=== PATIENT | female | born 1925 | race Caucasian/White ===

== ENCOUNTER → 2016-11-28 | Outpatient (CLI) | payer MEDICARE, OTHER ==
[2015-07-09 20:20] VITALS: BP 132/80
[~2016-11-28] MED LIST: ASPI-252 PO; ATOR40TA59 PO; CALC-67 PO; DULO60CA6 PO; ESOM40CA25 PO; IBAN150T PO; IRBE150T PO; IRBE300T PO; ISOS30TA PO; LIDO700A4 TP; METO25TA4 PO; MULT-658 PO; VIT1CAPS17 PO
--- NOTE | 2016-11-28 15:48 | RAD ---
DATE: 11/28/2016 EXAM: MAMMO JOSHUA SCREENING BILATERAL HISTORY: Previous left breast cancer COMPARISON: 11/28/2015 This study was interpreted with the benefit of Computerized Aided Detection (CAD). FINDINGS: 2-D and 3-D tomosynthesis imaging was performed in CC and MLO projections. There are scattered fibroglandular densities in the breasts. There is an elongated lymph node type density in the lateral aspect of the right breast which is unchanged. No new or enlarging breast densities are seen. There are numerous benign type calcifications in both breasts. No suspicious microcalcifications have developed. IMPRESSION: Stable mammograms without evidence of malignancy. BI-RADS CATEGORY: 2 BENIGN FINDING(S) RECOMMENDED FOLLOW-UP: 12M 12 MONTH FOLLOW-UP PQRS compliance statement: Patient information was entered into a reminder system with a target due date for the next mammogram. Mammography is a sensitive method for finding small breast cancers, but it does not detect them all and is not a substitute for careful clinical examination. A negative mammogram does not negate a clinically suspicious finding and should not result in delay in biopsying a clinically suspicious abnormality. "Our facility is accredited by the [employer] Mammography Program."
== END | disposition home or self-care (01) ==
LOC: MAMMO 14:36
PROVIDERS: ATTEND Family Medicine
DX: Z12.31 Encounter for screening mammogram for malignant neoplasm of breast (principal); Z85.3 Personal history of malignant neoplasm of breast
CPT/HCPCS: 77063; G0202; 77067

== ENCOUNTER 2017-05-04 09:01 | Inpatient (IN) | payer MEDICARE, OTHER ==
[~2017-05-04] VITALS: Ht 170.2 cm; Wt 70.3 kg
[2017-05-04] VITALS (11 sets, daily range): BP systolic 85–154; BP diastolic 57–87
[~2017-05-04 09:01] MED LIST changes: +CALC-31 PO; -CALC-67 PO; +CALCIUM CARB/VIT D3 500/200 TABLET PO SCH
[2017-05-04 09:33] LABS: BASO # 0.1 x10^3/uL (0.0-0.2); BASO % 1 % (0-3); EOS # 0.2 x10^3/uL (0.0-0.7); EOS % 3 % (0-3); HEMATOCRIT 41.7 % (36.0-47.0); HEMOGLOBIN 13.4 g/dL (12.0-15.5); LYMPH # 1.6 x10^3/uL (1.0-4.8); LYMPH % 19 % (24-48); MEAN CORPUSCULAR HEMOGLOBIN 30 pg (25-35); MEAN CORPUSCULAR HGB CONC 32 g/dL (31-37); MEAN CORPUSCULAR VOLUME 93 fL (79-100); MONO # 0.8 x10^3/uL (0.0-1.1); MONO % 9 % (0-9); NEUT # 5.7 x10^3uL (1.8-7.7); NEUT % 68 % (31-73); PLATELET COUNT 200 x10^3/uL (140-400); RED BLOOD COUNT 4.51 x10^6/uL (3.50-5.40); RED CELL DISTRIBUTION WIDTH 13.6 % (11.5-14.5); WHITE BLOOD COUNT 8.3 x10^3/uL (4.0-11.0)
--- NOTE | 2017-05-04 09:35 | RAD ---
AP portable chest radiograph 05/04/2017 Clinical History: Shortness of breath. An AP portable erect digital radiograph of the chest was obtained. Comparison study is dated 07/13/2012. The cardiac silhouette is mildly enlarged. Atherosclerotic calcification of the thoracic aorta is seen. The thoracic aorta is mildly tortuous. Surgical clips overlie the left axilla. No acute pulmonary infiltrate is seen. No pleural effusion or pneumothorax is noted. Mild to moderate S-shaped curvature of the thoracolumbar spine is seen. Degenerative changes are seen involving the thoracic spine and both shoulders. Impression: No acute abnormality is seen.
[2017-05-04 09:50] LABS: ALBUMIN/GLOBULIN RATIO 0.7 (1.0-1.7); CALCIUM 8.3 mg/dL (8.5-10.1); CREATININE 1.8 mg/dL (0.6-1.0); GFR 26.5; POTASSIUM 3.8 mmol/L (3.5-5.1); TOTAL BILIRUBIN 0.6 mg/dL (0.2-1.0); TOTAL PROTEIN 7.3 g/dL (6.4-8.2)
[2017-05-04] MEDS ORDERED: AMIODARONE 450 MG/9 ML VIAL IV ONE (10:07)
[2017-05-04] MEDS ORDERED: AMIODARONE 900 MG in IV DEXTROSE 5% 500 ML IV PRN (10:30)
[2017-05-04] MEDS ORDERED: AMIODARONE 450 MG in IV DEXTROSE 5% 250 ML IV PRN (10:30)
[2017-05-04] MEDS ORDERED: FUROSEMIDE 40 MG/4 ML VIAL IVP ONE (11:30)
[2017-05-04] MEDS ORDERED: ONDANSETRON PF 4 MG/2 ML VIAL. IV PRN (12:00)
--- NOTE | 2017-05-04 13:40 | EKG ---
[address] [address] Test Date: 2017-05-04 Test Time: 09:10:06 Pat Name: GARY TUTTLE Department: Room: [facility]06 1 Gender: F Lard Refiner: : [id number] Requested By: JOSEFINA PETERSON Order Number: [id number] Reading MD: Brian Putnam Measurements Intervals [place] Rate: 101 P: ID: QRS: 41 QRSD: 136 T: 0 QT: 358 QTc: 465 Interpretive Statements ATRIAL FIB./FLUTTER WITH RAPID VENTRICULAR RESPONSE RBBB Electronically Signed On 05-05-2017 9:41:34 CDT by Brian Putnam
--- NOTE | 2017-05-04 14:41 | ED.ADGEN ---
Past History Past Medical History: CAD, Cancer, COPD, Depression, Heart Disease, Hypertension Past Surgical History: Cancer Surgery, Other Smoking: Non-smoker Alcohol Use: None Drug Use: None Adult General Chief Complaint Chief Complaint Shortness of breath HPI HPI Patient is a 89-year-old -[place] female who presents from referral from her PCPs office with reports of progressive shortness breath with exertion over the past 5 days. Patient has history of CAD, COPD, hypertension who states over the past 5 days she becomes short of breath limited exertion. Patient states she short of breath when she moves from her bed to her bathroom. Parents are improved with rest. Patient denies chest pain, palpitations, increased leg pain swelling. Patient denies paroxysmal nocturnal dyspnea and orthopnea. Denies history of congestive heart failure. Reports recent nonproductive cough. No fever chills sweats. No other acute symptoms or complaints. Patient was evaluated by her PCP this morning in the office noted to be in A. fib, new onset with episodes of RVR. Patient by ambulance to the ER for further evaluations. 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 Jara. Review of Systems Review of Systems ROS as per HPI. Current Medications Current Medications Current Medications Medications (Trade) Dose Ordered Sig/Verónica Start Time Stop Time Status Last Admin Dose Admin Amiodarone HCl (Cordarone) 450 mg STK-MED ONCE 05/04/17 10:07 05/04/17 10:08 DC Amiodarone HCl 450 mg/Dextrose 259 ml @ 17.26 mls/ hr CONT PRN 05/04/17 10:30 Amiodarone HCl 900 mg/Dextrose 518 ml @ 33.33 mls/ hr CONT PRN 05/04/17 10:30 05/04/17 10:30 DC Furosemide (Lasix) 40 mg 1X ONCE 05/04/17 11:30 05/04/17 11:31 DC Allergies Allergies Allergies Coded Allergies Type Severity Reaction Last Updated Verified iodine Allergy Unknown 02/11/14 Yes shellfish derived Allergy Unknown 02/11/14 Yes simvastatin Allergy Unknown 07/09/15 Yes Physical Exam Physical Exam Constitutional: Well developed, well nourished, no acute distress, non-toxic appearance. [] HENT: Normocephalic, atraumatic, bilateral external ears normal, oropharynx moist, no oral exudates, nose normal. [] Eyes: PERRLA, EOMI, conjunctiva normal, no discharge. [] Neck: Normal range of motion, no tenderness, supple, no stridor. [] Cardiovascular:Heart rate regular rhythm, no murmur [] Lungs & Thorax: Bilateral breath sounds clear to auscultation [] Abdomen: Bowel sounds normal, soft, no tenderness. [] Skin: Warm, dry, no erythema, no rash. [] Back: No tenderness, no CVA tenderness. [] Extremities: No tenderness, no cyanosis, no clubbing, ROM intact, no edema. [] Neurologic: Alert and oriented X 3, normal motor function, normal sensory function, no focal deficits noted. [] Psychologic: Affect normal, judgement normal, mood normal. [] Current Patient Data Vital Signs Vital Signs Date Time Temp Pulse Resp B/P (MAP) Pulse Ox O2 Delivery O2 Flow Rate FiO2 05/04/17 09:47 98.8 93 20 98 Room Air Lab Results Laboratory Tests Test 05/04/17 09:19 White Blood Count 8.3 x10^3/uL (4.0-11.0) Red Blood Count 4.51 x10^6/uL (3.50-5.40) Hemoglobin 13.4 g/dL (12.0-15.5) Hematocrit 41.7 % (36.0-47.0) Mean Corpuscular Volume 93 fL (79-100) Mean Corpuscular Hemoglobin 30 pg (25-35) Mean Corpuscular Hemoglobin Concent 32 g/dL (31-37) Red Cell Distribution Width 13.6 % (11.5-14.5) Platelet Count 200 x10^3/uL (140-400) Neutrophils (%) (Auto) 68 % (31-73) Lymphocytes (%) (Auto) 19 % (24-48) L Monocytes (%) (Auto) 9 % (0-9) Eosinophils (%) (Auto) 3 % (0-3) Basophils (%) (Auto) 1 % (0-3) Neutrophils # (Auto) 5.7 x10^3uL (1.8-7.7) Lymphocytes # (Auto) 1.6 x10^3/uL (1.0-4.8) Monocytes # (Auto) 0.8 x10^3/uL (0.0-1.1) Eosinophils # (Auto) 0.2 x10^3/uL (0.0-0.7) Basophils # (Auto) 0.1 x10^3/uL (0.0-0.2) Sodium Level 137 mmol/L (136-145) Potassium Level 3.8 mmol/L (3.5-5.1) Chloride Level 100 mmol/L (98-107) Carbon Dioxide Level 30 mmol/L (21-32) Anion Gap 7 (6-14) Blood Urea Nitrogen 25 mg/dL (7-20) H Creatinine 1.8 mg/dL (0.6-1.0) H Estimated GFR (Cockcroft-Gault) 26.5 BUN/Creatinine Ratio 14 (6-20) Glucose Level 110 mg/dL (70-99) H Calcium Level 8.3 mg/dL (8.5-10.1) L Total Bilirubin 0.6 mg/dL (0.2-1.0) Aspartate Amino Transferase (AST) 374 U/L (15-37) H Alanine Aminotransferase (ALT) 203 U/L (14-59) H Alkaline Phosphatase 182 U/L (46-116) H Troponin I Quantitative 0.020 ng/mL (0-0.055) UM-Oms-Z-Type Natriuretic Peptide 8791 pg/mL (0-449) H Total Protein 7.3 g/dL (6.4-8.2) Albumin 3.0 g/dL (3.4-5.0) L Albumin/Globulin Ratio 0.7 (1.0-1.7) L EKG EKG A. fib, rate 101, right bundle branch block, RVH, no acute ST-T wave changes.[] Radiology/Procedures Radiology/Procedures [Chest x-ray: No acute cardiopulmonary disease] Course & Med Decision Making Course & Med Decision Making Pertinent Labs and Imaging studies reviewed. (See chart for details) [Patient with new onset afib with CHF. While in the ED, patient noted to have brief self limited episode of possible V. tach on a monitor. She denies chest pain or palpitations or feeling lightheaded or dizzy during episode. Patient started on course of amiodarone. Patient's heart rate remained stable. Dr. Horne parks recreation director for the hospitalist service to admit. ] Final Impression Final Impression [1. New onset a-fib with RVR 2. acute congestive heart failure] Problems: Dragon Disclaimer Dragon Disclaimer This electronic medical record was generated, in whole or in part, using a voice recognition dictation system. JOSEFINA PETERSON DO May 04, 2017 14:41
[2017-05-04] MEDS ORDERED: VITE AC PO SCH (15:00)
[2017-05-04] MEDS ORDERED: ZNOX PO SCH (15:00)
[2017-05-04] MEDS ORDERED: LIDOCAINE (700MG/PATCH) PATCH. TP PRN (15:00)
[2017-05-04] MEDS ORDERED: LUT PO SCH (15:00)
[2017-05-04] MEDS ORDERED: VIT C PO SCH (15:00)
[2017-05-04] MEDS ORDERED: COPPER PO SCH (15:00)
[2017-05-04] MEDS ORDERED: ENOXAPARIN 30 MG/0.3 ML DISP.SYRIN. SQ SCH (16:30)
[2017-05-04] MEDS ORDERED: METO50TA10 PO (17:24)
[2017-05-04] MEDS ORDERED: ALBU8.5H8 INH (17:26)
[2017-05-04] MEDS ORDERED: FURO-69 PO (17:26)
[2017-05-04] MEDS ORDERED: PRIM50TA PO (17:26)
--- NOTE | 2017-05-04 18:09 | HP ---
ADMIT DATE: 05/04/2017 HISTORY OF PRESENT ILLNESS: The patient is an 89-year-old female patient who came to the Emergency Room as a referral from her primary care physician's office with reports of progressive shortness of breath with exertion that has been going on for the last 5 days. The patient is known to have history of coronary artery disease with multiple stenting, chronic obstructive pulmonary disease, and hypertension. Her main complaint was shortness of breath on exertion. She denied any orthopnea or paroxysmal nocturnal dyspnea. Denied any chest pain, cough, phlegm, or hemoptysis. She was evaluated at her primary care physician's office and was found to be in afib with rapid ventricular response. The patient was brought to the Emergency Room by ambulance for further evaluation. She has been seen before by the industrial servicer. She was evaluated and was started on amiodarone drip and was admitted to ICU to continue the amiodarone drip and to consult the Cardiology team. PAST MEDICAL HISTORY: Her past medical history is significant for hypertension, hyperlipidemia, chronic bronchitis, coronary artery disease status post PTCA with stent deployment. She has 2 stents in 2011 and another stent in 2014. She is also known to have gastroesophageal reflux disease, history of anemia, as well as breast cancer. PAST SURGICAL HISTORY: Significant for PTCA and stent deployment x3, bilateral cataract extraction, and left eye surgery. She had left breast lumpectomy, left total knee arthroplasty, appendectomy, and right knee arthroscopic surgery. ALLERGIES: SHE IS ALLERGIC TO IODINE AND SHELLFISH. SHE IS ALSO ALLERGIC TO SIMVASTATIN. MEDICATIONS: She is currently on following medications, aspirin 325 mg once a day, atorvastatin calcium 40 mg at bedtime, calcium carbonate with vitamin D 1 tablet daily, duloxetine 60 mg every other day, Nexium 40 mg daily, ibandronate sodium for Boniva 100 mg once a month, irbesartan 150 mg daily, isosorbide mononitrate 30 mg daily, lidocaine for Lidoderm patch 1 patch topically on for 12 hours and off for 12 hours, metoprolol tartrate 25 mg twice a day, multivitamin with mineral 1 tablet once a day, multivitamin for PreserVision ____ 1 tablet once a day. FAMILY HISTORY: She has 3 brothers, one at , one at 9-year-old with complication of appendicitis, and her oldest brother in his 60s with myocardial infarction. She has end-stage renal disease and has had kidney transplant donated by her son. Her mother at age of 71 because of myocardial infarction and her father also of myocardial infarction. SOCIAL HISTORY: She is and lives on her own. She has 1 adopted son. She does not smoke, but drinks alcohol occasionally. REVIEW OF SYSTEMS: The patient had bilateral cataract extractions, but denied any glaucoma or macular degeneration. Denied any earache, tinnitus, or sensorineural deafness. Denied any nosebleeds, stuffy nose, or postnasal drip. Denied any sore throat, sore tongue, toothache, hoarseness of voice, or difficulty swallowing. Denied any nausea, vomiting, diarrhea, or constipation. Denied any hematemesis, melena, or hematochezia. Denied any dysuria, frequency, or hematuria. She did complain of shortness of breath on exertion, but denied any orthopnea or paroxysmal nocturnal dyspnea. Denied any chest pain, cough, phlegm, or hemoptysis. Denied any dizziness, lightheadedness, or vertigo. PHYSICAL EXAMINATION: VITAL SIGNS: On arrival to the Emergency Room, she was in new onset of atrial fibrillation with heart rate in the 80s-90s, blood pressure was 103/62, temperature was 97, respiratory rate was 18, and oxygen saturation was 98% on room air. HEENT: Showed normocephalic and atraumatic. NECK: Supple. HEART: Showed normal first and second heart sounds with no gallop, rub, or murmur. CHEST: Clear to auscultation. No crepitation or rhonchi. ABDOMEN: Distended, soft, and nontender. No guarding or rigidity. No organomegaly. Hernial orifices are intact. Bowel sounds normal. NEUROLOGIC: She was awake, alert, and responding appropriately. Cranial nerves are intact. EXTREMITIES: She moves extremities without difficulty. She ambulates normally without assistance or assistive devices, although for the last few days, she has been using a cane. DIAGNOSTIC DATA: Her EKG showed that she was in atrial fibrillation with a heart rate of 101 with right bundle branch block and right ventricular hypertrophy with no acute ST-T changes. LABORATORY DATA: Her lab work showed white cell count of 8300, hemoglobin 13, hematocrit 42, MCV 93, and platelet count of 200,000. Her chemistry showed a serum sodium of 137, potassium 3.8, chloride 100, bicarbonate 30, anion gap of 7, BUN 25, and creatinine 1.8. Estimated GFR was 26 mL per minute. Her glucose was 110 and calcium was 8.3. Total bilirubin is normal. AST, ALT, and alkaline phosphatase are all elevated. Her beta natriuretic peptide was 8791, total protein 7.3, and albumin was 3. Her first set of cardiac enzymes showed troponin to be 0.020. Her prothrombin time was 10.6 and INR 2.7. Her chest x-ray showed that the cardiac silhouette is mildly enlarged ____thoracic aorta is seen. The thoracic aorta is mildly tortuous. Surgical clips overlying the left axilla. No acute pulmonary infiltrate is seen. No pleural effusion or pneumothorax noted. [id number] S-shaped curvature of the thoracolumbar spine is seen. Degenerative changes are seen involving the thoracic spine and both shoulders. IMPRESSION: In summary, this is an 89-year-old female patient who was admitted with a new onset atrial fibrillation and rapid ventricular response. She also seems to be clinically in heart failure. PLAN: My plan is to do two more sets of cardiac enzyme. We will consult the Chief Of Hospital Medicine. I will also make sure that we need to have anticoagulate her and we will decide on further management accordingly. BOB DEWITT MD DR: ERICKSON/dev JOB#: [id number] / [id number]
[2017-05-04] MEDS: PRIMIDONE 50 MG TABLET PO SCH (20:57)
[2017-05-04] MEDS ORDERED: METOPROLOL TART IMMED RELEASE 25 MG TABLET PO SCH (21:00)
[2017-05-04] MEDS ORDERED: ATORVASTATIN CALCIUM 20 MG TABLET PO SCH (21:00)
[2017-05-05] VITALS (17 sets, daily range): BP systolic 99–136; BP diastolic 49–77
[2017-05-05 08:20] LABS: ALBUMIN 2.6 g/dL (3.4-5.0); ALBUMIN/GLOBULIN RATIO 0.7 (1.0-1.7); CALCIUM 7.8 mg/dL (8.5-10.1); GFR 23.5; POTASSIUM 4.2 mmol/L (3.5-5.1); TOTAL BILIRUBIN 0.6 mg/dL (0.2-1.0); TOTAL PROTEIN 6.3 g/dL (6.4-8.2)
[2017-05-05 08:23] LABS: BASO # 0.1 x10^3/uL (0.0-0.2); BASO % 1 % (0-3); EOS # 0.2 x10^3/uL (0.0-0.7); EOS % 3 % (0-3); HEMATOCRIT 35.6 % (36.0-47.0); HEMOGLOBIN 11.7 g/dL (12.0-15.5); LYMPH # 2.5 x10^3/uL (1.0-4.8); LYMPH % 30 % (24-48); MEAN CORPUSCULAR HEMOGLOBIN 30 pg (25-35); MEAN CORPUSCULAR HGB CONC 33 g/dL (31-37); MEAN CORPUSCULAR VOLUME 92 fL (79-100); MONO # 0.9 x10^3/uL (0.0-1.1); MONO % 11 % (0-9); NEUT # 4.7 x10^3uL (1.8-7.7); NEUT % 56 % (31-73); PLATELET COUNT 176 x10^3/uL (140-400); RED BLOOD COUNT 3.87 x10^6/uL (3.50-5.40); RED CELL DISTRIBUTION WIDTH 13.4 % (11.5-14.5); WHITE BLOOD COUNT 8.3 x10^3/uL (4.0-11.0)
[2017-05-05] MEDS ORDERED: FUROSEMIDE 20 MG TABLET PO SCH (09:00)
[2017-05-05] MEDS ORDERED: ASPIRIN ENTERIC COATED 325 MG TABLET.DR. PO SCH (09:00)
[2017-05-05] MEDS ORDERED: ISOSORBIDE MONONITRATE ER 30 MG TAB.ER.24H PO SCH (09:00)
[2017-05-05] MEDS ORDERED: LOSARTAN 50 MG TABLET. PO SCH (09:00)
[2017-05-05] MEDS ORDERED: ASPI81TA50 PO (09:26)
[2017-05-05] MEDS: METOPROLOL SUCC 24HR ER 50 MG TAB.ER.24H. PO SCH (11:02)
[2017-05-05] MEDS: MULTIVITAMIN I-VITE TABLET. PO SCH (11:02)
[2017-05-05] MEDS: PANTOPRAZOLE 40 MG TABLET. PO SCH (11:04)
[2017-05-05] MEDS: DULoxetine HCL 60 MG CAPSULE.DR PO SCH (11:05)
[2017-05-05] MEDS: ASPIRIN ENTERIC COATED 81 MG TABLET.DR. PO SCH (11:05)
[2017-05-05] MEDS: ISOSORBIDE MONONITRATE ER 30 MG TAB.ER.24H PO SCH (11:17)
--- NOTE | 2017-05-05 13:08 | RAD ---
Bilateral lower extremity venous duplex study 05/05/2017 Clinical history: Bilateral leg swelling.. Technique: Using a combination of real time ultrasound imaging and color-flow and pulse Doppler imaging techniques along with graded compression and augmentation, duplex evaluation of the deep venous system of the both lower extremities was performed. Multiple images were obtained. Findings: There is no sonographic evidence of deep venous thrombosis involving the visualized deep venous structures of either lower extremity. Impression: Negative study.
--- NOTE | 2017-05-05 13:41 | CARD ---
APPROVED REPORT EXAM: Two-dimensional and M-mode echocardiogram with Doppler and color Doppler. Other Information Quality : Average Rhythm : NSR INDICATION Atrial Fibrillation Congestive Heart Failure 2D DIMENSIONS RVDd2.4 (2.9-3.5cm)Left Atrium(2D)3.4 (1.6-4.0cm) IVSd1.1 (0.7-1.1cm)Aortic Root(2D)2.7 (2.0-3.7cm) LVDd4.4 (3.9-5.9cm)LVOT Diameter2.0 (1.8-2.4cm) PWd1.1 (0.7-1.1cm)LVDs2.5 (2.5-4.0cm) FS (%) 32.1 %SV63.3 ml LVEF(%)63.3 (>50%) Aortic Valve AoV Peak Sin.208.6cm/sAoV VTI47.4cm AO Peak GR.17.4mmHgLVOT Peak Sin.70.6cm/s LVOT VTI 15.06cmAO Mean GR.10mmHg KAY (VMAX)1.34er8KDE (VTI)1.12cm2 Mitral Valve MV E Xtfqavel767.5cm/sMV E Peak Gr.6mmHg MV DECEL [id number] A Cxhrzvum06.8cm/s MV E Mean Gr.2mmHgMV [id number] E/A Ratio1.9MV A Rqhkitgf40cw MVA (PHT)3.36cm2 Tricuspid Valve TR P. Xsgslkey232rr/sRAP DBSCGFMO9zzYg TR Peak Gr.65fbPlLWMN85kaXn LEFT VENTRICLE The left ventricle is normal size. There is normal left ventricular wall thickness. Left ventricle sy stolic function is normal. The Ejection Fraction is 55%. There is normal LV segmental wall motion. Th e left ventricular diastolic function and filling is normal for age. RIGHT VENTRICLE The right ventricle is normal size. The right ventricular systolic function is normal. ATRIA The left atrium size is normal. The right atrium size is normal. The interatrial septum is intact wit h no evidence for an atrial septal defect or patent foramen ovale as noted on 2-D or Doppler imaging. AORTIC VALVE The aortic valve is moderately calcified and shows decreased opening. Doppler and Color Flow revealed no significant aortic regurgitation. Calculated aortic valve area is 1.1 cm2 (likely underestimated) with maximum pressure gradient of 17 mmHg and mean pressure gradient of 10 mmHg. Doppler and color-f low analysis revealed mild aortic stenosis. MITRAL VALVE Mitral annular calcification is mild. The mitral valve leaflets are thickened and calcified. There is no mitral valve stenosis. Doppler and Color Flow revealed mild to moderate mitral regurgitation. TRICUSPID VALVE The tricuspid valve is normal in structure. Doppler and Color Flow revealed moderate tricuspid regurg itation. The PA pressure was estimated at 38 mmHg. There is no tricuspid valve stenosis. PULMONIC VALVE The pulmonic valve is not well visualized. Doppler and Color Flow revealed no significant pulmonic va lvular regurgitation. There is no pulmonic valvular stenosis. GREAT VESSELS The aortic root is normal in size. The ascending aorta is normal in size. Pulmonary veins not recorde d. The IVC is normal in size and collapses >50% with inspiration. PERICARDIAL EFFUSION There is no evidence of significant pericardial effusion. Critical Notification Critical Value: No <Conclusion> Left ventricle systolic function is normal. The Ejection Fraction is 55%. There is normal LV segmental wall motion. The aortic valve is moderately calcified and shows decreased opening. Calculated aortic valve area is 1.1 cm2 (likely underestimated) with maximum pressure gradient of 17 mmHg and mean pressure gradient of 10 mmHg. Doppler and color-flow analysis revealed mild aortic sten osis, likely more consistent with true degree of stenosis. Doppler and Color Flow revealed mild to moderate mitral regurgitation. Doppler and Color Flow revealed moderate tricuspid regurgitation. The PA pressure was estimated at 38 mmHg.
--- NOTE | 2017-05-05 14:00 | RAD ---
Lung scan 05/05/2017 Clinical history: Elevated d-dimer with shortness of breath Technique: After the administration of 9.5 mCi of xenon-133 gas, ventilation images of both lungs were obtained using the gamma camera. After the intravenous administration of 5.5 mCi of technetium 99m MAA, perfusion images of both lungs were obtained using the gamma camera. Findings: Comparison is made to a portable chest radiograph dated 05/04/2017. This demonstrates no acute pulmonary infiltrate. Homogeneous ventilation to both lungs is seen. Multiple wedge-shaped subsegmental and segmental unmatched perfusion defects are seen scattered throughout both lungs. These findings are consistent with a high probability study for pulmonary embolism. Impression: High probability study. The patient's nurse was notified of this finding.
--- NOTE | 2017-05-05 14:44 | PDOC2 ---
NOMADDIE Dixie [employer] ME[employer]IC 05/05/17 1444: CONSULT Date of Admission DATE: 05/05/17 TIME: 13:35 Reason for Consult: atrial fibrillation with RVR Problem List Problems Medical Problems: (1) Acute CHF (congestive heart failure) Status: Acute History of Present Illness Ms Plata is an 89 year old female with a history of coronary artery disease with prior PCI/Stents, hypertension, hyperlipidemia and a remote history of tachy - karol. Most recently she had been evaluated for exertional dyspnea and intermittent chest pain. Cardiac cath revealed moderate 60% mid LAD stenosis and severe systolic hypertension. She was managed medically and with aggressive blood pressure control. She reports improvement in her symptoms as her pressure was more controlled. At this time she reports that she had increased dyspnea and fatigue over several days. She reports not being able to walk around in her house and more and more dyspnea at rest so she presented to her PCP office for eval. She was found to be in atrial fibrillation with RVR and sent to ED for evaluation and treatment. While in the ED she was noted to have some wide complex tachycardia that they thought may have been consistent with ventricular tachycardia and so she was started on amiodarone drip. Currently she is in sinus rhythm with rate in the 60s. She reports feeling much better and breathing easily. She denies chest pain, lightheadedness or presyncope. Past Medical History CAD with PCI KANDACE to lad in 2011, most recent cath reveals LAD disease as noted above. hypertension hyperlipidemia GERD prior asymptomatic tachybrady syndrome. Past Surgical History left knee replacement right meniscus repair left breast lumpectomy hip surgery Family History CAD, CHF, aortic stenosis Social History non smoker, no significant ETOH, no illicit drugs Current Medications Current Medications Amiodarone HCl (Cordarone) 450 mg STK-MED ONCE IV ; Start 05/04/17 at 10:07; Stop 05/04/17 at 10:08; Status DC Amiodarone HCl 900 mg/Dextrose 518 ml @ 33.33 mls/ hr CONT PRN IV SEE I/O RECORD; Start 05/04/17 at 10:30; Stop 05/04/17 at 10:30; Status DC Amiodarone HCl 450 mg/Dextrose 259 ml @ 17.26 mls/ hr CONT PRN IV SEE I/O RECORD Last administered on 05/05/17t 01:45; Start 05/04/17 at 10:30 Furosemide (Lasix) 40 mg 1X ONCE IVP ; Start 05/04/17 at 11:30; Stop 05/04/17 at 11:31; Status DC Ondansetron HCl (Zofran) 4 mg PRN Q4HRS PRN IV NAUSEA/VOMITING; Start 05/04/17 at 12:00; Stop 05/05/17 at 11:59; Status DC Aspirin (Aspirin Enteric Coated) 325 mg DAILY PO ; Start 05/05/17 at 09:00; Stop 05/05/17 at 09:31; Status DC Duloxetine HCl (Cymbalta) 60 mg QODAY PO ; Start 05/06/17 at 09:00; Stop at 09:00; Status DC Isosorbide Mononitrate (Imdur) 30 mg DAILY PO ; Start 05/05/17 at 09:00; Stop at 09:35; Status DC Lidocaine (Lidoderm) 1 patch PRN Q24HRS PRN TP PAIN; Start 05/04/17 at 15:00 Metoprolol Tartrate (Lopressor) 25 mg BID PO ; Start 05/04/17 at 21:00; Stop at 08:36; Status DC Atorvastatin Calcium (Lipitor) 40 mg QHS PO Last administered on 05/04/17 20: 57; Start 05/04/17 at 21:00 Calcium/Vitamin D (Oscal D 500mg/ 200uts) 1 tab DAILY PO ; Start 05/04/17 at 09: 00; Stop 05/05/17 at 09:35; Status DC Pantoprazole Sodium (Protonix) 40 mg DAILYAC PO Last administered on 05/05/17 11:04; Start 05/05/17 at 07:30 Losartan Potassium (Cozaar) 50 mg DAILY PO ; Start 05/05/17 at 09:00; Stop 05/05 at 09:35; Status DC Multivitamins/ Minerals (I-Vito) 1 tab DAILY PO Last administered on 05/05/17 11:02; Start 05/05/17 at 09:00 Non-Formulary Medication 1 each PRN DAILY PO ; Start 05/04/17 at 15:00; Stop at 15:24; Status DC Enoxaparin Sodium (Lovenox) 30 mg Q24H SQ Last administered on 05/04/17 17:35 ; Start 05/04/17 at 16:30 Furosemide (Lasix) 20 mg DAILY PO Last administered on 05/05/17 11:02; Start 05/05/17 at 09:00 Metoprolol Succinate (Toprol Xl) 50 mg DAILY PO Last administered on 05/05/17 11:02; Start 05/05/17 at 09:00 Primidone (Mysoline) 50 mg HS PO Last administered on 05/04/17 20:57; Start at 21:00 Aspirin (Aspirin Enteric Coated) 81 mg DAILY PO Last administered on 05/05/17 11:05; Start 05/05/17 at 09:45 Duloxetine HCl (Cymbalta) 60 mg DAILY08 PO Last administered on 05/05/17 11:05 ; Start 05/05/17 at 09:45 Isosorbide Mononitrate (Imdur) 60 mg DAILY PO Last administered on 05/05/17 11 :17; Start 05/05/17 at 09:45 Active Scripts Active Reported Aspir-Low (Aspirin) 81 Mg Tablet. 1 Tab PO DAILY Primidone 50 Mg Tablet 50 Mg PO HS Proair Hfa Inhaler (Albuterol Sulfate) 8.5 Gm Hfa.aer.ad 1 Puff INH PRN Q6HRS PRN Lasix (Furosemide) 20 Mg Tablet 1 Tab PO DAILY Metoprolol Succinate ( Xl ) (Metoprolol Succinate) 50 Mg Tab.er.24h 1 Tab PO DAILY Preservision Lutein Softgel (Vit C/Vito Ac/Lut/Copper/Znox) 1 Each Capsule 1 Each PO PRN DAILY last dose today, next dose tomorrow 6-24- Lidoderm (Lidocaine) 700 Mg Adh..patch 700 Mg TP PRN Q24HRS None placed today, may apply as necessary for pain Boniva (Ibandronate Sodium) 150 Mg Tablet 150 Mg PO Last dose today, next dose 6-24-14 Atorvastatin Calcium 40 Mg Tablet 40 Mg PO QHS Last dose today, next dose 6-24-14 Cymbalta (Duloxetine Hcl) 60 Mg Capsule.dr 60 Mg PO QODAY last dose today, next dose 6-24-14 Imdur (Isosorbide Mononitrate) 30 Mg Tab.er.24h 60 Mg PO DAILY Last dose today, next dose 02-28-14 Esomeprazole Capsule (Esomeprazole Strontium) 40 Mg Capsule.dr 40 Mg PO DAILYAC Last dose today, next dose 02-28-14 Allergies: Coded Allergies: iodine (Verified Allergy, Unknown, 02/11/14) shellfish derived (Verified Allergy, Unknown, 02/11/14) simvastatin (Verified Allergy, Unknown, 07/09/15) Review of System as per HPI or negative General: Alert, Oriented X3, Cooperative, No acute distress HEENT: Atraumatic, EOMI, Mucous membr. moist/pink Lungs: Other (essentially clear with decreased bases) Heart: Other (regular rate and rhythm without gallops, clicks or rubs) Abdomen: Normal bowel sounds, Soft, No tenderness Extremities: No cyanosis, Normal pulses Neuro: Normal speech Psych/Mental Status: Mental status NL, Mood NL VITALS Vital Signs Date Time Temp Pulse Resp B/P (MAP) Pulse Ox O2 Delivery O2 Flow Rate FiO2 05/05/17 12:43 Room Air 05/05/17 12:28 60 16 114/68 (83) 97 05/05/17 10:21 2.0 05/05/17 08:50 97.6 Labs Laboratory Tests Test 05/04/17 09:19 05/04/17 14:05 05/04/17 15:20 05/04/17 20:00 White Blood Count 8.3 x10^3/uL (4.0-11.0) Red Blood Count 4.51 x10^6/uL (3.50-5.40) Hemoglobin 13.4 g/dL (12.0-15.5) Hematocrit 41.7 % (36.0-47.0) Mean Corpuscular Volume 93 fL (79-100) Mean Corpuscular Hemoglobin 30 pg (25-35) Mean Corpuscular Hemoglobin Concent 32 g/dL (31-37) Red Cell Distribution Width 13.6 % (11.5-14.5) Platelet Count 200 x10^3/uL (140-400) Neutrophils (%) (Auto) 68 % (31-73) Lymphocytes (%) (Auto) 19 % (24-48) Monocytes (%) (Auto) 9 % (0-9) Eosinophils (%) (Auto) 3 % (0-3) Basophils (%) (Auto) 1 % (0-3) Neutrophils # (Auto) 5.7 x10^3uL (1.8-7.7) Lymphocytes # (Auto) 1.6 x10^3/uL (1.0-4.8) Monocytes # (Auto) 0.8 x10^3/uL (0.0-1.1) Eosinophils # (Auto) 0.2 x10^3/uL (0.0-0.7) Basophils # (Auto) 0.1 x10^3/uL (0.0-0.2) Sodium Level 137 mmol/L (136-145) Potassium Level 3.8 mmol/L (3.5-5.1) Chloride Level 100 mmol/L (98-107) Carbon Dioxide Level 30 mmol/L (21-32) Anion Gap 7 (6-14) Blood Urea Nitrogen 25 mg/dL (7-20) Creatinine 1.8 mg/dL (0.6-1.0) Estimated GFR (Cockcroft-Gault) 26.5 BUN/Creatinine Ratio 14 (6-20) Glucose Level 110 mg/dL (70-99) Calcium Level 8.3 mg/dL (8.5-10.1) Total Bilirubin 0.6 mg/dL (0.2-1.0) Aspartate Amino Transf (AST/SGOT) 374 U/L (15-37) Alanine Aminotransferase (ALT/SGPT) 203 U/L (14-59) Alkaline Phosphatase 182 U/L (46-116) Troponin I Quantitative 0.020 ng/mL (0-0.055) 0.017 ng/mL (0-0.055) 0.021 ng/mL (0-0.055) PX-Wap-P-Type Natriuretic Peptide 8791 pg/mL (0-449) Total Protein 7.3 g/dL (6.4-8.2) Albumin 3.0 g/dL (3.4-5.0) Albumin/Globulin Ratio 0.7 (1.0-1.7) Nasal Screen MRSA (PCR) Negative (Negative) Test 05/05/17 05:47 05/05/17 10:17 White Blood Count 8.3 x10^3/uL (4.0-11.0) Red Blood Count 3.87 x10^6/uL (3.50-5.40) Hemoglobin 11.7 g/dL (12.0-15.5) Hematocrit 35.6 % (36.0-47.0) Mean Corpuscular Volume 92 fL (79-100) Mean Corpuscular Hemoglobin 30 pg (25-35) Mean Corpuscular Hemoglobin Concent 33 g/dL (31-37) Red Cell Distribution Width 13.4 % (11.5-14.5) Platelet Count 176 x10^3/uL (140-400) Neutrophils (%) (Auto) 56 % (31-73) Lymphocytes (%) (Auto) 30 % (24-48) Monocytes (%) (Auto) 11 % (0-9) Eosinophils (%) (Auto) 3 % (0-3) Basophils (%) (Auto) 1 % (0-3) Neutrophils # (Auto) 4.7 x10^3uL (1.8-7.7) Lymphocytes # (Auto) 2.5 x10^3/uL (1.0-4.8) Monocytes # (Auto) 0.9 x10^3/uL (0.0-1.1) Eosinophils # (Auto) 0.2 x10^3/uL (0.0-0.7) Basophils # (Auto) 0.1 x10^3/uL (0.0-0.2) Sodium Level 135 mmol/L (136-145) Potassium Level 4.2 mmol/L (3.5-5.1) Chloride Level 100 mmol/L (98-107) Carbon Dioxide Level 28 mmol/L (21-32) Anion Gap 7 (6-14) Blood Urea Nitrogen 34 mg/dL (7-20) Creatinine 2.0 mg/dL (0.6-1.0) Estimated GFR (Cockcroft-Gault) 23.5 BUN/Creatinine Ratio 17 (6-20) Glucose Level 113 mg/dL (70-99) Calcium Level 7.8 mg/dL (8.5-10.1) Total Bilirubin 0.6 mg/dL (0.2-1.0) Aspartate Amino Transf (AST/SGOT) 376 U/L (15-37) Alanine Aminotransferase (ALT/SGPT) 213 U/L (14-59) Alkaline Phosphatase 157 U/L (46-116) Total Protein 6.3 g/dL (6.4-8.2) Albumin 2.6 g/dL (3.4-5.0) Albumin/Globulin Ratio 0.7 (1.0-1.7) D-Dimer (Sarai) 1.38 mg/L (0.00-0.50) Images EKG - atrial fibrillation with RVR CXR - Impression: No acute abnormality is seen. Assessment/Plan 1. Paroxysmal Atrial fibrillation with RVR - now sinus rhythm 2. CAD s/p PCI/stent 2011 with moderate disease by last cath 3. hypertension 4. hyperlipidemia 5. hepatic insufficiency 6. renal failure, acute on chronic 7. advanced age Discontinue amiodarone and statin in light of elevated liver enzymes. Would continue on beta blockers only as no ideal agent with her hepatic and renal dysfunction. Cha2ds 2 vasc score = 5 but again comorbidities increase risk associated with OACs. Continue aspirin. Discussed risks and benefits with patient and answered questions. Problems: PITO ARMSTRONG MD 05/06/17 0951: CONSULT Allergies: Coded Allergies: iodine (Verified Allergy, Unknown, 02/11/14) shellfish derived (Verified Allergy, Unknown, 02/11/14) simvastatin (Verified Allergy, Unknown, 07/09/15) Assessment/Plan Patient seen and examined 05/05/17. Agree with GUEST SERVICES ASSOCIATE's assessment and plan. Patient presented back in sinus rhythm. Agree with continuing beta blockers and aspirin. Stop amiodarone for elevated liver enzymes. 2-D echo showed normal LV function with mild aortic stenosis. CAD status stable. Acute on chronic diastolic heart failure probably secondary to rapid ventricular response, presently improved. Continue current medical regimen. Thank you for your consultation. Problems: MADDIE SARABIA APRN May 05, 2017 14:44 PITO ARMSTRONG MD May 06, 2017 09:51
[2017-05-05] MEDS ORDERED: IV NORMAL SALINE 500ML 500 ML IV ONE (14:45)
[2017-05-05] MEDS: ENOXAPARIN ** NOTE DOSE ** SYRINGE SQ SCH (15:31)
[2017-05-05] MEDS: IV NORMAL SALINE 1,000ML 1,000 ML IV SCH (15:31)
[2017-05-05] MEDS: PRIMIDONE 50 MG TABLET PO SCH (19:59)
[2017-05-05] MEDS ORDERED: ACETAMINOPHEN 325 MG TABLET PO PRN (22:15)
[2017-05-06] VITALS (17 sets, daily range): BP systolic 95–169; BP diastolic 50–88
--- NOTE | 2017-05-06 01:55 | PN ---
DATE: 05/05/2017 SUBJECTIVE: The patient is resting, almost flat in bed, in no apparent distress. She denied any chest pain or shortness of breath at rest. Her liver enzymes were markedly elevated. I did check her D-dimer and was found to be at 1.38 and we did a pulmonary perfusion imaging, which showed that there is homogeneous ventilation to both lungs and seen multiple wedge-shaped subsegmental and segmental unmatched perfusion defects are seen scattered throughout both lungs. The findings are considered with a high probability study for pulmonary embolism and therefore we increased her Lovenox to a therapeutic dose of 70 mg once a day. Unfortunately, her kidney function is deteriorating and her creatinine has risen slightly to 2 mg, her baseline was 0.9 mg so I will give her a bolus of normal saline and continue with IV fluid and repeat all her labs tomorrow. I will hold her Lasix for now and we will treat her and repeat her lab works tomorrow and eventually we will start her on Xarelto 15 mg twice a day for 21 days and then 20 mg daily. PHYSICAL EXAMINATION: GENERAL: When I examined her this afternoon, she looked well and was clearly in no apparent respiratory distress, pale, but no jaundice, cyanosis, or thyromegaly. No jugular venous distention. No limb edema. VITAL SIGNS: Her heart rate was 60, blood pressure 114/68, temperature was 98, respiratory rate was 16, and oxygen saturation was 97% on room air. HEAD, EYES, EARS, NOSE AND THROAT: Showed normocephalic, atraumatic. NECK: Supple. HEART: Showed normal first and second heart sounds. No gallop, rub or murmur. CHEST: Clear to auscultation. No crepitation or rhonchi. ABDOMEN: Distended, soft, nontender. No guarding or rigidity. No organomegaly. All hernial orifices are intact. Bowel sounds normal. NEUROLOGIC: She was awake, alert, responding appropriately. Cranial nerves are intact. She moves extremities without difficulty. She does ambulate without assistance or assistive devices. Her intake over the last 24 hours was 900, output 300. LABORATORY DATA: This morning showed a serum sodium 135, potassium 4.2, chloride 100, bicarbonate 28, anion gap of 7, BUN 34, creatinine 2. Estimated GFR was 23 mL per minute. Her glucose was 113, calcium was 7.8. Total bilirubin is normal. AST, ALT and alkaline phosphatase are all elevated. She has 3 sets of cardiac enzymes, showed troponin to be slightly elevated, but still within normal range. Her total protein was 6.3, albumin 2.6. Her white cell count was 8300, hemoglobin 11.7, hematocrit 35.6, MCV 92, and platelet count of 276,000. Her D-dimer is 1.38. Her nasal screen for MRSA by PCR was negative. DIAGNOSTIC DATA: She has bilateral lower extremity venous Doppler ultrasound, which showed that there is no sonographic evidence of deep vein thrombosis involving the visualized deep venous structures of either lower extremity. However, the ventilation perfusion scan showed that she has homogenous ventilation with both lungs and is seen multiple wedge-shaped subsegmental and segmental unmatched perfusion defects are seen scattered throughout both lungs. These findings are consistent with a high probability study for pulmonary embolism. ASSESSMENT: New onset atrial fibrillation with rapid ventricular response, bilateral pulmonary emboli, hypertension, hyperlipidemia, coronary artery disease, status post percutaneous transluminal coronary angioplasty or stent deployment, gastroesophageal reflux disease, anemia as well as breast cancer. BOB DEWITT MD DR: ERICKSON/dev JOB#: [id number] / [id number]
[2017-05-06] MEDS: IV NORMAL SALINE 1,000ML 1,000 ML IV SCH ×2 (03:14→19:45)
[2017-05-06 06:33] LABS: CALCIUM 7.3 mg/dL (8.5-10.1); CREATININE 1.6 mg/dL (0.6-1.0); GFR 30.3; POTASSIUM 3.8 mmol/L (3.5-5.1)
[2017-05-06 07:34] LABS: ALBUMIN 2.3 g/dL (3.4-5.0); DIRECT BILIRUBIN 0.2 mg/dL (0.0-0.2); TOTAL BILIRUBIN 0.6 mg/dL (0.2-1.0)
[2017-05-06] MEDS ORDERED: DULoxetine HCL 60 MG CAPSULE.DR PO SCH (09:00)
[2017-05-06] MEDS: ASPIRIN ENTERIC COATED 81 MG TABLET.DR. PO SCH (09:00)
[2017-05-06] MEDS: PANTOPRAZOLE 40 MG TABLET. PO SCH (09:21)
[2017-05-06] MEDS: ISOSORBIDE MONONITRATE ER 30 MG TAB.ER.24H PO SCH (09:23)
[2017-05-06] MEDS: DULoxetine HCL 60 MG CAPSULE.DR PO SCH (09:23)
[2017-05-06] MEDS: MULTIVITAMIN I-VITE TABLET. PO SCH (09:23)
[2017-05-06] MEDS: ASPIRIN 81 MG TAB.CHEW PO SCH (09:24)
[2017-05-06] MEDS: METOPROLOL SUCC 24HR ER 50 MG TAB.ER.24H. PO SCH (09:25)
--- NOTE | 2017-05-06 09:44 | PDOC ---
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 Paroxysmal Atrial fibrillation with RVR - now sinus rhythm 2. chronic diastolic heart failure - compensated 3. PE - anticoagulation 6 months. Discussed with pharmacy re: elevated liver enzymes. Rec Pradaxa with renal adjustment. 4. CAD s/p PCI/stent 2011 with moderate disease by last cath - angina free. continue medical mgmt. 5. hypertension - controlled 6. hyperlipidemia - stopped statin due to elevated LFts. 7. hepatic insufficiency - off statin, off amiodarone, stop cymbalta and check with PCP for alternative. stop tylenol. 8. renal failure, acute on chronic - improved 9. advanced age Problems: Subjective up in shower. reports feeling better and breathing improved. no chest pain, palpitations or lightheadedness. Objective Vital Signs Date Time Temp Pulse Resp B/P (MAP) Pulse Ox O2 Delivery O2 Flow Rate FiO2 05/06/17 09:25 61 128/70 05/06/17 06:11 20 97 Nasal Cannula 2.0 05/05/17 21:11 98.6 Abdomen: Normal bowel sounds, Soft, No tenderness Heart: Regular rate, Normal S1, Normal S2 Extremities: No cyanosis, Normal pulses General: Alert, Oriented X3, Cooperative, No acute distress HEENT: Atraumatic, EOMI Lungs: Other (few basilar crackles) Neuro: Normal speech, Strength at 5/5 X4 ext Psych/Mental Status: Mental status NL, Mood NL Review of Relevant I have reviewed the following items natalee (where applicable) has been applied. Labs Laboratory Tests Test 05/04/17 14:05 05/04/17 15:20 05/04/17 20:00 05/05/17 05:47 Nasal Screen MRSA (PCR) Negative (Negative) Troponin I Quantitative 0.017 ng/mL (0-0.055) 0.021 ng/mL (0-0.055) White Blood Count 8.3 x10^3/uL (4.0-11.0) Red Blood Count 3.87 x10^6/uL (3.50-5.40) Hemoglobin 11.7 g/dL (12.0-15.5) Hematocrit 35.6 % (36.0-47.0) Mean Corpuscular Volume 92 fL (79-100) Mean Corpuscular Hemoglobin 30 pg (25-35) Mean Corpuscular Hemoglobin Concent 33 g/dL (31-37) Red Cell Distribution Width 13.4 % (11.5-14.5) Platelet Count 176 x10^3/uL (140-400) Neutrophils (%) (Auto) 56 % (31-73) Lymphocytes (%) (Auto) 30 % (24-48) Monocytes (%) (Auto) 11 % (0-9) Eosinophils (%) (Auto) 3 % (0-3) Basophils (%) (Auto) 1 % (0-3) Neutrophils # (Auto) 4.7 x10^3uL (1.8-7.7) Lymphocytes # (Auto) 2.5 x10^3/uL (1.0-4.8) Monocytes # (Auto) 0.9 x10^3/uL (0.0-1.1) Eosinophils # (Auto) 0.2 x10^3/uL (0.0-0.7) Basophils # (Auto) 0.1 x10^3/uL (0.0-0.2) Sodium Level 135 mmol/L (136-145) Potassium Level 4.2 mmol/L (3.5-5.1) Chloride Level 100 mmol/L (98-107) Carbon Dioxide Level 28 mmol/L (21-32) Anion Gap 7 (6-14) Blood Urea Nitrogen 34 mg/dL (7-20) Creatinine 2.0 mg/dL (0.6-1.0) Estimated GFR (Cockcroft-Gault) 23.5 BUN/Creatinine Ratio 17 (6-20) Glucose Level 113 mg/dL (70-99) Calcium Level 7.8 mg/dL (8.5-10.1) Total Bilirubin 0.6 mg/dL (0.2-1.0) Aspartate Amino Transf (AST/SGOT) 376 U/L (15-37) Alanine Aminotransferase (ALT/SGPT) 213 U/L (14-59) Alkaline Phosphatase 157 U/L (46-116) Total Protein 6.3 g/dL (6.4-8.2) Albumin 2.6 g/dL (3.4-5.0) Albumin/Globulin Ratio 0.7 (1.0-1.7) Thyroid Stimulating Hormone (TSH) 2.942 uIU/mL (0.358-3.740) Test 05/05/17 10:17 05/06/17 05:53 D-Dimer (Sarai) 1.38 mg/L (0.00-0.50) Erythrocyte Sedimentation Rate 17 (0-25) Sodium Level 139 mmol/L (136-145) Potassium Level 3.8 mmol/L (3.5-5.1) Chloride Level 105 mmol/L (98-107) Carbon Dioxide Level 28 mmol/L (21-32) Anion Gap 6 (6-14) Blood Urea Nitrogen 25 mg/dL (7-20) Creatinine 1.6 mg/dL (0.6-1.0) Estimated GFR (Cockcroft-Gault) 30.3 Glucose Level 93 mg/dL (70-99) Calcium Level 7.3 mg/dL (8.5-10.1) Total Bilirubin 0.6 mg/dL (0.2-1.0) Direct Bilirubin 0.2 mg/dL (0.0-0.2) Aspartate Amino Transf (AST/SGOT) 452 U/L (15-37) Alanine Aminotransferase (ALT/SGPT) 254 U/L (14-59) Alkaline Phosphatase 156 U/L (46-116) C-Reactive Protein 4.9 mg/L (0-3.3) Total Protein 6.0 g/dL (6.4-8.2) Albumin 2.3 g/dL (3.4-5.0) Microbiology 05/04/17 Blood Culture - Preliminary, Resulted NO GROWTH AFTER 2 DAYS Medications Current Medications Amiodarone HCl (Cordarone) 450 mg STK-MED ONCE IV ; Start 05/04/17 at 10:07; Stop 05/04/17 at 10:08; Status DC Amiodarone HCl 900 mg/Dextrose 518 ml @ 33.33 mls/ hr CONT PRN IV SEE I/O RECORD; Start 05/04/17 at 10:30; Stop 05/04/17 at 10:30; Status DC Amiodarone HCl 450 mg/Dextrose 259 ml @ 17.26 mls/ hr CONT PRN IV SEE I/O RECORD Last administered on 05/05/17 01:45; Start 05/04/17 at 10:30; Stop 05/05 at 13:49; Status DC Furosemide (Lasix) 40 mg 1X ONCE IVP ; Start 05/04/17 at 11:30; Stop 05/04/17 at 11:31; Status DC Ondansetron HCl (Zofran) 4 mg PRN Q4HRS PRN IV NAUSEA/VOMITING; Start 05/04/17 at 12:00; Stop 05/05/17 at 11:59; Status DC Aspirin (Aspirin Enteric Coated) 325 mg DAILY PO ; Start 05/05/17 at 09:00; Stop 05/05/17 at 09:31; Status DC Duloxetine HCl (Cymbalta) 60 mg QODAY PO ; Start 05/06/17 at 09:00; Stop at 09:00; Status DC Isosorbide Mononitrate (Imdur) 30 mg DAILY PO ; Start 05/05/17 at 09:00; Stop at 09:35; Status DC Lidocaine (Lidoderm) 1 patch PRN Q24HRS PRN TP PAIN; Start 05/04/17 at 15:00 Metoprolol Tartrate (Lopressor) 25 mg BID PO ; Start 05/04/17 at 21:00; Stop at 08:36; Status DC Atorvastatin Calcium (Lipitor) 40 mg QHS PO Last administered on 05/04/17 20: 57; Start 05/04/17 at 21:00; Stop 05/05/17 at 13:58; Status DC Calcium/Vitamin D (Oscal D 500mg/ 200uts) 1 tab DAILY PO ; Start 05/04/17 at 09: 00; Stop 05/05/17 at 09:35; Status DC Pantoprazole Sodium (Protonix) 40 mg DAILYAC PO Last administered on 05/06/17 09:21; Start 05/05/17 at 07:30 Losartan Potassium (Cozaar) 50 mg DAILY PO ; Start 05/05/17 at 09:00; Stop 05/05 at 09:35; Status DC Multivitamins/ Minerals (I-Vito) 1 tab DAILY PO Last administered on 05/06/17 09:23; Start 05/05/17 at 09:00 Non-Formulary Medication 1 each PRN DAILY PO ; Start 05/04/17 at 15:00; Stop at 15:24; Status DC Enoxaparin Sodium (Lovenox) 30 mg Q24H SQ Last administered on 05/04/17 17:35 ; Start 05/04/17 at 16:30; Stop 05/05/17 at 14:03; Status DC Furosemide (Lasix) 20 mg DAILY PO Last administered on 05/05/17 11:02; Start 05/05/17 at 09:00; Stop 05/05/17 at 14:51; Status DC Metoprolol Succinate (Toprol Xl) 50 mg DAILY PO Last administered on 05/06/17 09:25; Start 05/05/17 at 09:00 Primidone (Mysoline) 50 mg HS PO Last administered on 05/05/17 19:59; Start at 21:00 Aspirin (Aspirin Enteric Coated) 81 mg DAILY PO Last administered on 05/05/17 11:05; Start 05/05/17 at 09:45; Stop 05/06/17 at 09:29; Status DC Duloxetine HCl (Cymbalta) 60 mg DAILY08 PO Last administered on 05/06/17 09:23 ; Start 05/05/17 at 09:45 Isosorbide Mononitrate (Imdur) 60 mg DAILY PO Last administered on 05/06/17 09 :23; Start 05/05/17 at 09:45 Aspirin (Children'S Aspirin) 162 mg DAILYWBKFT PO Last administered on 09:24; Start 05/06/17 at 08:00 Enoxaparin Sodium (Lovenox 80mg Syringe) 70 mg Q24H SQ Last administered on 15:31; Start 05/05/17 at 14:15 Sodium Chloride 1,000 ml @ 75 mls/hr [id number] IV Last administered on 03:14; Start 05/05/17 at 14:30 Sodium Chloride 500 ml @ 0 mls/hr 1X ONCE IV Last administered on 05/05/17 15 :30; Start 05/05/17 at 14:45; Stop 05/05/17 at 14:46; Status DC Acetaminophen (Tylenol) 650 mg PRN Q6HRS PRN PO PAIN Last administered on t 22:14; Start 05/05/17 at 22:15 Active Scripts Active Reported Aspir-Low (Aspirin) 81 Mg Tablet. 1 Tab PO DAILY Primidone 50 Mg Tablet 50 Mg PO HS Proair Hfa Inhaler (Albuterol Sulfate) 8.5 Gm Hfa.aer.ad 1 Puff INH PRN Q6HRS PRN Lasix (Furosemide) 20 Mg Tablet 1 Tab PO DAILY Metoprolol Succinate ( Xl ) (Metoprolol Succinate) 50 Mg Tab.er.24h 1 Tab PO DAILY Preservision Lutein Softgel (Vit C/Vito Ac/Lut/Copper/Znox) 1 Each Capsule 1 Each PO PRN DAILY last dose today, next dose tomorrow - Lidoderm (Lidocaine) 700 Mg Adh..patch 700 Mg TP PRN Q24HRS None placed today, may apply as necessary for pain Boniva (Ibandronate Sodium) 150 Mg Tablet 150 Mg PO Last dose today, next dose -24 Atorvastatin Calcium 40 Mg Tablet 40 Mg PO QHS Last dose today, next dose 6-24-14 Cymbalta (Duloxetine Hcl) 60 Mg Capsule. 60 Mg PO QODAY last dose today, next dose - Imdur (Isosorbide Mononitrate) 30 Mg Tab.er.24h 60 Mg PO DAILY Last dose today, next dose -24-14 Esomeprazole Capsule (Esomeprazole Strontium) 40 Mg Capsule. 40 Mg PO DAILYAC Last dose today, next dose 02-28-14 Vitals/I & O Vital Sign - Last 24 Hours 05/05/17 05/05/17 05/05/17 05/05/17 10:21 11:02 11:17 11:22 Pulse 65 65 65 61 Resp 18 18 B/P (MAP) 119/69 (86) 119/63 119/63 136/73 (94) Pulse Ox 100 97 O2 Delivery Nasal Cannula Room Air O2 Flow Rate 2.0 05/05/17 05/05/17 05/05/17 05/05/17 12:28 12:43 13:11 14:11 Pulse 60 66 64 Resp 16 20 16 B/P (MAP) 114/68 (83) 131/77 (95) 100/54 (69) Pulse Ox 97 O2 Delivery Room Air Room Air Room Air Room Air 05/05/17 05/05/17 05/05/17 05/05/17 15:59 16:36 17:57 18:39 Temp 98.2 Pulse 62 69 66 Resp 18 20 20 B/P (MAP) 99/59 (72) 100/64 (76) 124/67 (86) Pulse Ox 93 95 93 O2 Delivery Room Air Room Air Room Air Room Air 05/05/17 05/05/17 05/05/17 05/05/17 20:15 21:11 21:11 22:16 Temp 98.6 Pulse 67 70 69 Resp 18 16 18 B/P (MAP) 133/75 (94) 133/75 (94) 114/62 (79) Pulse Ox 92 93 100 O2 Delivery Room Air Room Air Room Air Nasal Cannula O2 Flow Rate 2.0 05/05/17 05/06/17 05/06/17 05/06/17 23:11 00:00 00:26 01:11 Pulse 69 67 65 Resp 20 20 18 B/P (MAP) 99/49 (66) 103/50 (67) 104/52 (69) Pulse Ox 100 98 98 O2 Delivery Nasal Cannula Room Air Nasal Cannula Nasal Cannula O2 Flow Rate 2.0 2.0 2.0 05/06/17 05/06/17 05/06/17 05/06/17 02:11 03:11 04:11 04:12 Pulse 63 64 62 Resp 18 16 20 B/P (MAP) 106/51 (69) 102/54 (70) 95/56 (69) Pulse Ox 99 97 O2 Delivery Nasal Cannula Nasal Cannula Room Air O2 Flow Rate 2.0 2.0 05/06/17 05/06/17 05/06/17 05/06/17 05:11 06:11 09:23 09:25 Pulse 64 61 61 61 Resp 20 20 B/P (MAP) 113/63 (80) 128/70 (89) 128/70 128/70 Pulse Ox 100 97 O2 Delivery Nasal Cannula Nasal Cannula O2 Flow Rate 2.0 2.0 HA ELAINE MD 05/06/17 3275: PROGRESS NOTES Review of Relevant Patient seen and examined. Agree with above nurse practitioner note. 89-year-old woman well known to me. Presented with atrial fibrillation now resolved. Diagnosis of new bilateral pulmonary emboli which appear to be subacute in nature. Agree with anticoagulation. Supportive care from a cardiac standpoint. No indication for anti-arrhythmic drug therapy. Etiology of P.E. is unclear, consider CT c/a/p MADDIE SARABIA APRN May 06, 2017 09:44 HA ELAINE MD May 06, 2017 17:51
[2017-05-06] MEDS: ENOXAPARIN ** NOTE DOSE ** SYRINGE SQ SCH (15:23)
[2017-05-06] MEDS: PRIMIDONE 50 MG TABLET PO SCH (19:45)
--- NOTE | 2017-05-07 02:07 | PN ---
DATE: SUBJECTIVE: The patient is resting flat, comfortably in bed, in no apparent respiratory distress. She was awake, alert. Denied any chest pain. She continued to have shortness of breath on exertion. PHYSICAL EXAMINATION: GENERAL: When I examined her, she looked slightly pale, no jaundice, cyanosis, or thyromegaly. No jugular venous distention. No limb edema. VITAL SIGNS: Her heart rate was 65, blood pressure 128/70, temperature was 97.4, respiratory rate was 16, and oxygen saturation was 98%. HEAD, EYES, EARS, NOSE AND THROAT: Showed normocephalic, atraumatic. NECK: Supple. HEART: Showed normal first and second heart sounds with no gallop, rub or murmur. CHEST: Clear to auscultation. No crepitation or rhonchi. ABDOMEN: Distended, soft, nontender. NEUROLOGIC: She is awake, alert, responding appropriately. Cranial nerves intact. She moves extremities without difficulty. She ambulates without assistance. Her intake over the last 24 hours was 2000, output was 1300. LABORATORY DATA: As of this morning showed a white cell count of 8300, hemoglobin 11.7, hematocrit 35.6, MCV 92, and platelet count of 176,000. Her serum sodium was 139, potassium 3.8, chloride 105, bicarbonate 28, anion gap of 6, BUN 25, creatinine 1.6, estimated GFR was 50 mL per minute. Her glucose was 93, calcium was 7.3. Total bilirubin normal. AST, ALT, alkaline phosphatase are trending upward. Her C-reactive protein was 4.9, total protein was 6, albumin 2.3 and her sedimentation rate was 17 mm per hour. ASSESSMENT: 1. New onset atrial fibrillation with rapid ventricular response. 2. Bilateral pulmonary emboli. 3. Hypertension. 4. Hyperlipidemia. 5. Coronary artery disease, status post percutaneous transluminal coronary angioplasty and stent deployment 6. Gastroesophageal reflux disease. 7. Anemia. 8. Breast cancer status post lumpectomy and plan is to continue with acute kidney injury with a creatinine that has risen from 1-2, deranged liver enzyme, the cause of which is not clear. PLAN: My plan is to continue with IV fluid, continue with anticoagulation. We will discharge her home tomorrow hopefully on Pradaxa, if she remains stable and liver enzymes are trending downward. BOB DEWITT MD DR: Patti JOB#: [id number] / [id number]
[2017-05-07 06:02] VITALS: BP 170/93
[2017-05-07] MEDS: IV NORMAL SALINE 1,000ML 1,000 ML IV SCH (06:04)
[2017-05-07] MEDS: METOPROLOL SUCC 24HR ER 50 MG TAB.ER.24H. PO SCH (06:16)
[2017-05-07 06:33] LABS: ALBUMIN 2.6 g/dL (3.4-5.0); ALBUMIN/GLOBULIN RATIO 0.6 (1.0-1.7); CALCIUM 7.6 mg/dL (8.5-10.1); CREATININE 1.2 mg/dL (0.6-1.0); GFR 42.3; POTASSIUM 4.2 mmol/L (3.5-5.1); TOTAL BILIRUBIN 0.7 mg/dL (0.2-1.0); TOTAL PROTEIN 6.7 g/dL (6.4-8.2)
[2017-05-07 06:39] LABS: HEMOGLOBIN 12.7 g/dL (12.0-15.5); RED BLOOD COUNT 4.17 x10^6/uL (3.50-5.40); RED CELL DISTRIBUTION WIDTH 13.4 % (11.5-14.5); WHITE BLOOD COUNT 8.9 x10^3/uL (4.0-11.0)
[2017-05-07] MEDS: PANTOPRAZOLE 40 MG TABLET. PO SCH (07:27)
[2017-05-07] MEDS: MULTIVITAMIN I-VITE TABLET. PO SCH (08:00)
[2017-05-07] MEDS: ISOSORBIDE MONONITRATE ER 30 MG TAB.ER.24H PO SCH (08:00)
[2017-05-07] MEDS: ASPIRIN 81 MG TAB.CHEW PO SCH (08:00)
--- NOTE | 2017-05-07 08:36 | RAD ---
CT scan of the abdomen and pelvis without contrast 05/07/2017 Clinical history: Elevated liver function tests. Technique: Unenhanced, contiguous, 3 mm axial sections were obtained through the pelvis. Intravenous contrast was not administered due to the patient's history of a contrast allergy. One or more of the following individualized dose reduction techniques were utilized for this study: 1. Automated exposure control. 2. Adjustment of the mA and/or kV according to patient size. 3. Use of iterative reconstruction technique. Findings: Comparison is made to an ultrasound of the right quadrant of the abdomen dated 10/30/2014. Images through the lung bases demonstrate mild cardiomegaly. Dependent subsegmental atelectasis is seen involving both lower lobes. There are very small bilateral pleural effusions, left greater than right. The unenhanced CT appearance of the liver, spleen, pancreas, adrenal glands and right kidney are within normal limits. 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 Moderate atherosclerotic calcification abdominal of the aorta is seen. The abdominal aorta is tortuous but tapers normally. The gallbladder is well-distended. Calcified gallstones are seen within the dependent portions of the gallbladder. No free fluid or free air is seen within the abdomen. There is no evidence of bowel obstruction. Air and stool is seen throughout the colon. Images through pelvis demonstrate the urinary bladder distended with urine. The uterus is within normal limits. No adnexal mass is seen. Multiple diverticula are seen involving the sigmoid colon. No inflammatory changes are seen in the adjacent fat. 3 screws are seen within the proximal right femur. Moderate S-shaped curvature of the thoracolumbar spine is seen. There are associated degenerative changes. Impression: 1. Cholelithiasis. 2. No acute abnormality is seen.
[2017-05-07 08:58] VITALS: BP 136/71
[2017-05-07] MEDS ORDERED: CITALOPRAM 20 MG TABLET. PO SCH (09:00)
--- NOTE | 2017-05-07 09:16 | PDOC ---
PROGRESS NOTES Diagnosis Problem Problems Medical Problems: (1) Acute CHF (congestive heart failure) Status: Acute Assessment Problems Medical Problems: (1) Acute CHF (congestive heart failure) Status: Acute 1. paroxysmal atrial fibrillation - remains sinus rhythm. Continue metoprolol 2. bilateral PE - lovenox -> Pradaxa, per PCP 3. hepatic insufficiency - LFTs continue to slowly increase, ? cause. per PCP 4. ARF - resolved Continue supportive care from CV perspective. Problems: Subjective no chest pain, breathing stable, no palpitations, no lightheadedness Objective Vital Signs Date Time Temp Pulse Resp B/P (MAP) Pulse Ox O2 Delivery O2 Flow Rate FiO2 05/07/17 08:58 98.6 136/71 (92) 05/07/17 08:00 78 05/07/17 06:02 16 95 Nasal Cannula 2.0 Intake and Output 05/08/17 07:00 Intake Total 360 ml Balance 360 ml Intake Oral 360 ml Abdomen: Normal bowel sounds, Soft, No tenderness Heart: Regular rate, Normal S1, Normal S2 Extremities: No cyanosis, Normal pulses General: Alert, Oriented X3, Cooperative, No acute distress HEENT: Atraumatic, EOMI Lungs: Clear to auscultation Neuro: Normal speech, Strength at 5/5 X4 ext Psych/Mental Status: Mental status NL, Mood NL Review of Relevant I have reviewed the following items natalee (where applicable) has been applied. Labs Laboratory Tests Test 05/05/17 10:17 05/06/17 05:53 05/07/17 05:51 D-Dimer (Sarai) 1.38 mg/L (0.00-0.50) Erythrocyte Sedimentation Rate 17 (0-25) Sodium Level 139 mmol/L (136-145) 137 mmol/L (136-145) Potassium Level 3.8 mmol/L (3.5-5.1) 4.2 mmol/L (3.5-5.1) Chloride Level 105 mmol/L (98-107) 103 mmol/L (98-107) Carbon Dioxide Level 28 mmol/L (21-32) 24 mmol/L (21-32) Anion Gap 6 (6-14) 10 (6-14) Blood Urea Nitrogen 25 mg/dL (7-20) 18 mg/dL (7-20) Creatinine 1.6 mg/dL (0.6-1.0) 1.2 mg/dL (0.6-1.0) Estimated GFR (Cockcroft-Gault) 30.3 42.3 Glucose Level 93 mg/dL (70-99) 107 mg/dL (70-99) Calcium Level 7.3 mg/dL (8.5-10.1) 7.6 mg/dL (8.5-10.1) Total Bilirubin 0.6 mg/dL (0.2-1.0) 0.7 mg/dL (0.2-1.0) Direct Bilirubin 0.2 mg/dL (0.0-0.2) Aspartate Amino Transf (AST/SGOT) 452 U/L (15-37) 568 U/L (15-37) Alanine Aminotransferase (ALT/SGPT) 254 U/L (14-59) 323 U/L (14-59) Alkaline Phosphatase 156 U/L (46-116) 187 U/L (46-116) C-Reactive Protein 4.9 mg/L (0-3.3) Total Protein 6.0 g/dL (6.4-8.2) 6.7 g/dL (6.4-8.2) Albumin 2.3 g/dL (3.4-5.0) 2.6 g/dL (3.4-5.0) White Blood Count 8.9 x10^3/uL (4.0-11.0) Red Blood Count 4.17 x10^6/uL (3.50-5.40) Hemoglobin 12.7 g/dL (12.0-15.5) Hematocrit 38.0 % (36.0-47.0) Mean Corpuscular Volume 91 fL (79-100) Mean Corpuscular Hemoglobin 30 pg (25-35) Mean Corpuscular Hemoglobin Concent 33 g/dL (31-37) Red Cell Distribution Width 13.4 % (11.5-14.5) Platelet Count 189 x10^3/uL (140-400) BUN/Creatinine Ratio 15 (6-20) Albumin/Globulin Ratio 0.6 (1.0-1.7) Microbiology 05/04/17 Blood Culture - Preliminary, Resulted NO GROWTH AFTER 2 DAYS Medications Current Medications Amiodarone HCl (Cordarone) 450 mg STK-MED ONCE IV ; Start 05/04/17 at 10:07; Stop 05/04/17 at 10:08; Status DC Amiodarone HCl 900 mg/Dextrose 518 ml @ 33.33 mls/ hr CONT PRN IV SEE I/O RECORD; Start 05/04/17 at 10:30; Stop 05/04/17 at 10:30; Status DC Amiodarone HCl 450 mg/Dextrose 259 ml @ 17.26 mls/ hr CONT PRN IV SEE I/O RECORD Last administered on 05/05/17t 01:45; Start 05/04/17 at 10:30; Stop 05/05 at 13:49; Status DC Furosemide (Lasix) 40 mg 1X ONCE IVP ; Start 05/04/17 at 11:30; Stop 05/04/17 at 11:31; Status DC Ondansetron HCl (Zofran) 4 mg PRN Q4HRS PRN IV NAUSEA/VOMITING; Start 05/04/17 at 12:00; Stop 05/05/17 at 11:59; Status DC Aspirin (Aspirin Enteric Coated) 325 mg DAILY PO ; Start 05/05/17 at 09:00; Stop 05/05/17 at 09:31; Status DC Duloxetine HCl (Cymbalta) 60 mg QODAY PO ; Start 05/06/17 at 09:00; Stop at 09:00; Status DC Isosorbide Mononitrate (Imdur) 30 mg DAILY PO ; Start 05/05/17 at 09:00; Stop at 09:35; Status DC Lidocaine (Lidoderm) 1 patch PRN Q24HRS PRN TP PAIN; Start 05/04/17 at 15:00 Metoprolol Tartrate (Lopressor) 25 mg BID PO ; Start 05/04/17 at 21:00; Stop at 08:36; Status DC Atorvastatin Calcium (Lipitor) 40 mg QHS PO Last administered on 05/04/17t 20: 57; Start 05/04/17 at 21:00; Stop 05/05/17 at 13:58; Status DC Calcium/Vitamin D (Oscal D 500mg/ 200uts) 1 tab DAILY PO ; Start 05/04/17 at 09: 00; Stop 05/05/17 at 09:35; Status DC Pantoprazole Sodium (Protonix) 40 mg DAILYAC PO Last administered on 05/07/17 07:27; Start 05/05/17 at 07:30 Losartan Potassium (Cozaar) 50 mg DAILY PO ; Start 05/05/17 at 09:00; Stop 05/05 at 09:35; Status DC Multivitamins/ Minerals (I-Vito) 1 tab DAILY PO Last administered on 05/07/17 08:00; Start 05/05/17 at 09:00 Non-Formulary Medication 1 each PRN DAILY PO ; Start 05/04/17 at 15:00; Stop at 15:24; Status DC Enoxaparin Sodium (Lovenox) 30 mg Q24H SQ Last administered on 05/04/17 17:35 ; Start 05/04/17 at 16:30; Stop 05/05/17 at 14:03; Status DC Furosemide (Lasix) 20 mg DAILY PO Last administered on 05/05/17 11:02; Start 05/05/17 at 09:00; Stop 05/05/17 at 14:51; Status DC Metoprolol Succinate (Toprol Xl) 50 mg DAILY PO Last administered on 05/07/17 06:16; Start 05/05/17 at 09:00 Primidone (Mysoline) 50 mg HS PO Last administered on 05/06/17 19:45; Start at 21:00 Aspirin (Aspirin Enteric Coated) 81 mg DAILY PO Last administered on 05/05/17 11:05; Start 05/05/17 at 09:45; Stop 05/06/17 at 09:29; Status DC Duloxetine HCl (Cymbalta) 60 mg DAILY08 PO Last administered on 05/06/17 09:23 ; Start 05/05/17 at 09:45; Stop 05/06/17 at 12:51; Status DC Isosorbide Mononitrate (Imdur) 60 mg DAILY PO Last administered on 05/07/17 08 :00; Start 05/05/17 at 09:45 Aspirin (Children'S Aspirin) 162 mg DAILYWBKFT PO Last administered on 08:00; Start 05/06/17 at 08:00 Enoxaparin Sodium (Lovenox 80mg Syringe) 70 mg Q24H SQ Last administered on 15:23; Start 05/05/17 at 14:15 Sodium Chloride 1,000 ml @ 75 mls/hr [id number] IV Last administered on 19:45; Start 05/05/17 at 14:30 Sodium Chloride 500 ml @ 0 mls/hr 1X ONCE IV Last administered on 05/05/17 15 :30; Start 05/05/17 at 14:45; Stop 05/05/17 at 14:46; Status DC Acetaminophen (Tylenol) 650 mg PRN Q6HRS PRN PO PAIN Last administered on 22:14; Start 05/05/17 at 22:15; Stop 05/06/17 at 09:44; Status DC Citalopram Hydrobromide (CeleXA) 20 mg DAILY PO ; Start 05/07/17 at 09:00 Active Scripts Active Reported Aspir-Low (Aspirin) 81 Mg Tablet. 1 Tab PO DAILY Primidone 50 Mg Tablet 50 Mg PO HS Proair Hfa Inhaler (Albuterol Sulfate) 8.5 Gm Hfa.aer.ad 1 Puff INH PRN Q6HRS PRN Lasix (Furosemide) 20 Mg Tablet 1 Tab PO DAILY Metoprolol Succinate ( Xl ) (Metoprolol Succinate) 50 Mg Tab.er.24h 1 Tab PO DAILY Preservision Lutein Softgel (Vit C/Vito Ac/Lut/Copper/Znox) 1 Each Capsule 1 Each PO PRN DAILY last dose today, next dose tomorrow 6- Lidoderm (Lidocaine) 700 Mg Adh..patch 700 Mg TP PRN Q24HRS None placed today, may apply as necessary for pain Boniva (Ibandronate Sodium) 150 Mg Tablet 150 Mg PO Last dose today, next dose 6-24-14 Atorvastatin Calcium 40 Mg Tablet 40 Mg PO QHS Last dose today, next dose 6-24-14 Cymbalta (Duloxetine Hcl) 60 Mg Capsule. 60 Mg PO QODAY last dose today, next dose 6-24-14 Imdur (Isosorbide Mononitrate) 30 Mg Tab.er.24h 60 Mg PO DAILY Last dose today, next dose 6-24-14 Esomeprazole Capsule (Esomeprazole Strontium) 40 Mg Capsule. 40 Mg PO DAILYAC Last dose today, next dose 02-28-14 Vitals/I & O Vital Sign - Last 24 Hours 05/06/17 05/06/17 05/06/17 05/06/17 09:20 09:23 09:25 10:40 Pulse 67 61 61 65 Resp 20 16 B/P (MAP) 135/78 (97) 128/70 128/70 128/70 (89) Pulse Ox 98 O2 Delivery Room Air Room Air 05/06/17 05/06/17 05/06/17 05/06/17 11:28 12:12 13:37 15:59 Temp 97.4 Pulse 61 63 Resp 15 20 B/P (MAP) 119/63 (81) 134/83 (100) O2 Delivery Room Air Room Air Room Air 05/06/17 05/06/17 05/06/17 05/06/17 16:10 18:37 19:52 23:07 Temp 97.5 98.3 98.2 Pulse 61 68 66 72 Resp 16 20 20 18 B/P (MAP) 134/83 (100) 163/82 (109) 158/84 (108) 169/88 (115) Pulse Ox 94 96 94 97 O2 Delivery Room Air Room Air Nasal Cannula O2 Flow Rate 2.0 05/07/17 05/07/17 05/07/17 05/07/17 06:02 06:16 08:00 08:58 Temp 98.8 98.6 Pulse 78 78 78 Resp 16 B/P (MAP) 170/93 (118) 170/93 170/93 136/71 (92) Pulse Ox 95 O2 Delivery Nasal Cannula O2 Flow Rate 2.0 Intake and Output 05/07/17 05/07/17 05/08/17 15:00 23:00 07:00 Intake Total 360 ml Balance 360 ml MADDIE SARABIA APRN May 07, 2017 09:16
[2017-05-07] MEDS ORDERED: DABI150C PO (13:32)
--- NOTE | 2017-05-07 21:05 | DS ---
DATE OF DISCHARGE: 05/07/2017 HISTORY OF PRESENT ILLNESS: The patient is an 89-year-old female patient who was referred to the Emergency Room by her primary care physician with reports of progressive shortness of breath with exertion that has been going on for the last 5 days. She was evaluated in the Emergency Room and was found to have atrial fibrillation with rapid ventricular response and she apparently was seen by the Cardiology team and was started on three sets of cardiac enzymes that were all negative. She was noted to have acute kidney injury with creatinine that has risen to 2 mg. Liver enzymes were also elevated, so I did arrange for her to have D-dimer, which was high at 1.38 and we did actually V/Q scan as we could not do CT scan with contrast because of impaired kidney function and her pulmonary perfusion imaging showed that she has homogenous ventilation to both lungs. However, she has multiple wedge-shaped subsegmental and segmental unmatched perfusion defects are seen scattered throughout both lungs. These findings are consistent with high probability study for pulmonary embolism for which she was started on Lovenox and in consultation with the pharmacy, decision was made to switch her to Pradaxa for her to be discharged home. Her kidney function has improved. Her creatinine came down from 2 to 1.2 this morning. Unfortunately, her liver enzymes continued to rise. I spoke with Dr. Ziegler and apparently she has episodes before of abnormal liver enzymes and was investigated for hepatitis with hepatitis serology, which was negative. She is known to have gallstones and I did a CT scan of the abdomen and pelvis, which showed that she has cholelithiasis, but no evidence of acute cholecystitis or biliary obstruction. Given that her heart rate is now well controlled, a decision was made to discharge her home to continue on Pradaxa 150 mg twice a day for a total of 6 months and she will follow with Dr. Putnam on 05/13/2016, and also should follow with Dr. Ziegler to look into the liver enzymes further. PHYSICAL EXAMINATION: GENERAL: When I examined her this afternoon, she looked well and was clearly in no apparent respiratory distress. Slightly pale, but no jaundice, cyanosis, or thyromegaly. No jugular venous distension. No limb edema. VITAL SIGNS: Her heart rate was 79, blood pressure was 136/71, temperature was 98.6, respiratory rate was 16, and oxygen saturation was 95% on 2 liters of oxygen. HEAD, EYES, EARS, NOSE, AND THROAT: Showed normocephalic and atraumatic. NECK: Supple. HEART: Showed normal first and second heart sounds with no gallop, rub, or murmur. CHEST: Clear to auscultation. No crepitation or rhonchi. ABDOMEN: Distended, soft, and nontender. No guarding or rigidity. No organomegaly. Hernial orifices are intact. Bowel sounds normal. NEUROLOGIC: She was awake, alert, and responding appropriately. Cranial nerves are intact. She moves extremities without difficulty. She ambulates without assistance or assistive devices. Her intake over the last 24 hours was 2000 and output 1300. LABORATORY DATA: Her lab work as of this morning showed a serum sodium 137, potassium 4.2, chloride 103, bicarbonate 24, anion gap of 10, BUN 18, and creatinine 1.2. Estimated GFR was 42 mL per minute. Her glucose 107, calcium was 7.6, and total bilirubin 0.7. AST, ALT, and alkaline phosphatase are all elevated, although AST and ALT are elevated disproportionately compared to alkaline phosphatase. Her total protein was 6.7 and albumin 2.6. Her thyroid function was 2.94. C-reactive protein was 4.9. White cell count was 8900, hemoglobin 12.7, hematocrit 38, MCV 91, and platelet count of 189,000 with a sedimentation rate of 17 mm per hour. D-dimer was 1.38. Her nasal screen for MRSA by PCR was negative. She did have venous Doppler ultrasound of both lower extremities, which was negative. They stated her pulmonary ventilation perfusion scan was done and it showed homogenous ventilation to both lungs are seen. She has multiple wedge-shaped subsegmental and segmental unmatched perfusion defects are seen scattered throughout both lungs. These findings are consistent with high probability study for pulmonary embolism. The abdominal CT scan showed that she has cholelithiasis with no acute abnormalities seen. DISCHARGE MEDICATIONS: She will be discharged home to continue on following medications, albuterol sulfate 1 puff every 6 hours, aspirin 81 mg once a day, duloxetine for Cymbalta 60 mg once a day, omeprazole 40 mg daily, furosemide 20 mg once a day, alendronate sodium for Boniva 150 mg once a month, isosorbide mononitrate 60 mg once a day, Lidoderm patch on for 12 hours and off for 12 hours, metoprolol succinate 50 mg once a day, primidone 50 mg at bedtime, and multivitamin 1 tablet once a day. I held her atorvastatin calcium given impaired liver enzymes and she will discharge on Pradaxa 150 mg twice a day for a total of 6 months. She should follow with her primary care physician and Dr. Putnam. BOB DEWITT MD DR: ERICKSON/nts JOB#: [id number] / [id number]
== END 2017-05-07 14:40 | disposition home or self-care (01) | DRG 682 ==
LOC: ER 09:01 → ICU 11:45
PROVIDERS: ADMIT Internal Medicine; ATTEND Internal Medicine
DX: N17.9 Acute kidney failure, unspecified (principal); I26.99 Other pulmonary embolism without acute cor pulmonale; I50.33 Acute on chronic diastolic (congestive) heart failure; I13.0 Hypertensive heart and chronic kidney disease with heart failure and stage 1 through stage 4 chronic kidney disease, or unspecified chronic kidney disease; I48.0 Paroxysmal atrial fibrillation; I25.10 Atherosclerotic heart disease of native coronary artery without angina pectoris; J44.9 Chronic obstructive pulmonary disease, unspecified; F32.9 Major depressive disorder, single episode, unspecified; E78.5 Hyperlipidemia, unspecified; D64.9 Anemia, unspecified; N18.9 Chronic kidney disease, unspecified; I35.0 Nonrheumatic aortic (valve) stenosis; K80.20 Calculus of gallbladder without cholecystitis without obstruction; Z96.652 Presence of left artificial knee joint; K21.9 Gastro-esophageal reflux disease without esophagitis; I49.5 Sick sinus syndrome; Z95.5 Presence of coronary angioplasty implant and graft; Z85.3 Personal history of malignant neoplasm of breast; Z90.49 Acquired absence of other specified parts of digestive tract; Z88.8 Allergy status to other drugs, medicaments and biological substances; Z91.041 Radiographic dye allergy status; Z91.013 Allergy to seafood; Z79.899 Other long term (current) drug therapy; Z79.82 Long term (current) use of aspirin; Z82.49 Family history of ischemic heart disease and other diseases of the circulatory system; Z79.01 Long term (current) use of anticoagulants; Z98.41 Cataract extraction status, right eye; Z98.42 Cataract extraction status, left eye
CPT/HCPCS: 36415; 71010; 74176; 78582; 80048; 80053; 80076; 83880; 84443; 84484; 85025; 85027; 85379; 85651; 86140; 87040; 87641; 93005; 93306; 93970; 96374; A9540; A9558; J0282; J1650; J7040; J7030

== ENCOUNTER 2017-06-22 18:00 | Inpatient (IN) | payer MEDICARE, OTHER ==
[~2017-06-22] VITALS: Ht 170.2 cm; Wt 72.6 kg
[~2017-06-22 18:00] MED LIST changes: +ALBU8.5H8 INH; +ASPI81TA50 PO; -CALCIUM CARB/VIT D3 500/200 TABLET PO SCH; +DABI150C PO; +FURO-69 PO; +METO50TA29 PO; +PRIM50TA PO
--- NOTE | 2017-06-22 19:06 | RAD ---
CT Chest Abdomen Pelvis without Intravenous Contrast: History: Trauma, fall, pain Comparison: CT chest September 25, 2014. CT abdomen pelvis May 07, 2017. Technique: Noncontrast CT of the chest, abdomen, and pelvis was performed from the lung apices through the ischial tuberosities. Exposure: One or more of the following individualized dose reduction techniques were utilized for this examination: 1. Automated exposure control 2. Adjustment of the mA and/or kV according to patient size 3. Use of iterative reconstruction technique Findings: Evaluation of solid organs is limited by lack of intravenous contrast. Evaluation of enteric structures may be limited by lack of oral contrast. There is also motion artifact at several levels. Right thyroid lobe demonstrates a small coarse calcification. Trachea and mainstem bronchi appear patent. No mediastinal lymphadenopathy is seen. Coronary artery calcifications are present. No pericardial thickening is identified. No acute airspace disease is seen. No pneumothorax or pleural effusion is identified. Both lungs demonstrate mild interstitial thickening, may be fibrotic process. Left axillary clips are seen. Cholelithiasis is seen. Liver, spleen, pancreas, and bilateral adrenal glands unremarkable. There is moderate atrophy of left kidney. Right kidney demonstrates more normal parenchymal volume. Both kidneys are without evidence of stone or obstruction. Aortic atherosclerosis is noted. No bowel obstruction or inflammation is seen. Urinary bladder is unremarkable. The uterus and adnexa have unremarkable CT appearance. Colonic diverticulosis is noted, but no diverticulitis is appreciated. There is moderate compression at T8, age-indeterminate. There is also mild superior endplate irregularity at T5, may be endplate fracture, age-indeterminate. Severe dextroconvex scoliosis of the lumbar spine is seen. Right hip fixation screws are seen. Impression: 1. Limited examination. 2. No acute organ injury identified in the chest, abdomen, or pelvis. 3. T5 and T8 vertebral fractures, age-indeterminate. Electronically signed by: Spencer Landaverde MD (06/22/2017 7:03 PM) [facility]
--- NOTE | 2017-06-22 19:28 | RAD ---
CT head without intravenous contrast History: Trauma from fall today, anticoagulated. Comparison: CT head February 10, 2014. Technique: Axial images are obtained of the head from the skull base through the vertex without IV contrast. Exposure: One or more of the following individualized dose reduction techniques were utilized for this examination: 1. Automated exposure control 2. Adjustment of the mA and/or kV according to patient size 3. Use of iterative reconstruction technique Findings: The ventricles are appropriate in size, shape, and location for the patient's age. No obvious intracranial mass, mass-effect, midline shift, hemorrhage or obvious acute infarction is identified. Basilar cisterns are patent. Bone windows demonstrate no acute calvarial abnormality. The visualized paranasal sinuses appear clear. Impression: No acute intracranial process. Please note that CT can be relatively insensitive to acute ischemic infarction for up to [address] cervical spine Comparison: None. Technique: Noncontrast CT of the cervical spine was performed using helical technique. Axial, sagittal, coronal reconstructions were obtained. Exposure: One or more of the following individualized dose reduction techniques were utilized for this examination: 1. Automated exposure control 2. Adjustment of the mA and/or kV according to patient size 3. Use of iterative reconstruction technique Findings: There is no evidence of acute fracture or acute malalignment involving the cervical spine. No prevertebral soft tissue swelling is identified. Advanced multilevel degeneration is seen with facet and uncovertebral hypertrophy as well as degenerative disc disease. Impression: 1. No evidence of acute traumatic injury involving the cervical spine. 2. Degeneration. Electronically signed by: Spencer Landaverde MD (06/22/2017 7:24 PM) [facility]
[2017-06-22 19:39] LABS: BASO % 1 % (0-3); EOS # 0.5 x10^3/uL (0.0-0.7); EOS % 7 % (0-3); HEMATOCRIT 38.7 % (36.0-47.0); LYMPH # 1.8 x10^3/uL (1.0-4.8); LYMPH % 24 % (24-48); MEAN CORPUSCULAR HEMOGLOBIN 31 pg (25-35); MEAN CORPUSCULAR HGB CONC 34 g/dL (31-37); MEAN CORPUSCULAR VOLUME 92 fL (79-100); MONO # 0.6 x10^3/uL (0.0-1.1); MONO % 8 % (0-9); NEUT # 4.7 x10^3uL (1.8-7.7); NEUT % 61 % (31-73); PLATELET COUNT 168 x10^3/uL (140-400); RED CELL DISTRIBUTION WIDTH 14.6 % (11.5-14.5); WHITE BLOOD COUNT 7.7 x10^3/uL (4.0-11.0)
[2017-06-22 19:46] LABS: CALCIUM 8.4 mg/dL (8.5-10.1); CREATININE 1.5 mg/dL (0.6-1.0); GFR 32.7; POTASSIUM 3.9 mmol/L (3.5-5.1)
[2017-06-22] MEDS ORDERED: LIDOCAINE (700MG/PATCH) PATCH. TD ONE (20:45)
[2017-06-22] MEDS ORDERED: ACETAMINOPHEN 325 MG TABLET PO PRN (23:30)
[2017-06-22] MEDS ORDERED: KETOROLAC 15 MG/ML VIAL. IV ONE (23:30)
[2017-06-23] VITALS (9 sets, daily range): BP systolic 148–210; BP diastolic 75–112
--- NOTE | 2017-06-23 02:42 | ED.ADGEN ---
Past History Past Medical History: A-Fib, Bronchitis, CAD, Cancer, COPD, Depression, Heart Disease, Hypertension Past Surgical History: Cancer Surgery, Other Smoking: Non-smoker Alcohol Use: None Drug Use: None Adult General Chief Complaint Chief Complaint Accidental fall HPI HPI Patient is a 89-year-old female on Pradaxa who presents with accidental fall living room. Patient states she tripped over a throw rug landing and hitting her chest wall on a table and had on the ground. Patient denies loss of consciousness or feeling dazed or lightheaded. Patient denies headache, dizziness lightheadedness, neck pain. Reports that sternal chest pain worse with palpation and deep breathing. Denies shortness of breath, abdominal pain. No extremity pain or injury. No other acute symptoms or complaints.[] Review of Systems Review of Systems ROS as per HPI. Current Medications Current Medications Current Medications Medications (Trade) Dose Ordered Sig/Verónica Start Time Stop Time Status Last Admin Dose Admin Fentanyl Citrate (Fentanyl 2ml Vial) 50 mcg 1X ONCE 06/22/17 20:00 06/22/17 20:01 DC 06/22/17 19:55 50 MCG Allergies Allergies Allergies Coded Allergies Type Severity Reaction Last Updated Verified iodine Allergy Intermediate 05/06/17 Yes shellfish derived Allergy Intermediate 05/06/17 Yes simvastatin Allergy Intermediate 05/06/17 Yes Physical Exam Physical Exam Constitutional: Well developed, well nourished, no acute distress, non-toxic appearance. [] HENT: Normocephalic, central forehead hematoma,, bilateral external ears normal , oropharynx moist, no oral exudates, nose normal. [] Eyes: PERRLA, EOMI, conjunctiva normal, no discharge. [] Neck: Normal range of motion, no tenderness, supple, no stridor. [] Cardiovascular:Heart rate regular rhythm, no murmur [] Lungs & Thorax: Bilateral breath sounds clear to auscultation, xiphoid tenderness [] Abdomen: Bowel sounds normal, soft, epigastric pain, tenderness.. [] Skin: Warm, dry, no erythema, no rash. [] Back: No tenderness, no CVA tenderness. [] Extremities: No tenderness, no cyanosis, no clubbing, ROM intact, no edema. [] Neurologic: Alert and oriented X 3, normal motor function, normal sensory function, no focal deficits noted. [] Psychologic: Affect normal, judgement normal, mood normal. [] Current Patient Data Vital Signs Vital Signs Date Time Temp Pulse Resp B/P (MAP) Pulse Ox O2 Delivery O2 Flow Rate FiO2 06/22/17 20:00 78 18 179/97 (124) 93 Room Air 06/22/17 18:00 98.6 Lab Results Laboratory Tests Test 06/22/17 19:15 White Blood Count 7.7 x10^3/uL (4.0-11.0) Red Blood Count 4.20 x10^6/uL (3.50-5.40) Hemoglobin 13.0 g/dL (12.0-15.5) Hematocrit 38.7 % (36.0-47.0) Mean Corpuscular Volume 92 fL (79-100) Mean Corpuscular Hemoglobin 31 pg (25-35) Mean Corpuscular Hemoglobin Concent 34 g/dL (31-37) Red Cell Distribution Width 14.6 % (11.5-14.5) H Platelet Count 168 x10^3/uL (140-400) Neutrophils (%) (Auto) 61 % (31-73) Lymphocytes (%) (Auto) 24 % (24-48) Monocytes (%) (Auto) 8 % (0-9) Eosinophils (%) (Auto) 7 % (0-3) H Basophils (%) (Auto) 1 % (0-3) Neutrophils # (Auto) 4.7 x10^3uL (1.8-7.7) Lymphocytes # (Auto) 1.8 x10^3/uL (1.0-4.8) Monocytes # (Auto) 0.6 x10^3/uL (0.0-1.1) Eosinophils # (Auto) 0.5 x10^3/uL (0.0-0.7) Basophils # (Auto) 0.0 x10^3/uL (0.0-0.2) Sodium Level 139 mmol/L (136-145) Potassium Level 3.9 mmol/L (3.5-5.1) Chloride Level 103 mmol/L (98-107) Carbon Dioxide Level 29 mmol/L (21-32) Anion Gap 7 (6-14) Blood Urea Nitrogen 21 mg/dL (7-20) H Creatinine 1.5 mg/dL (0.6-1.0) H Estimated GFR (Cockcroft-Gault) 32.7 Glucose Level 109 mg/dL (70-99) H Calcium Level 8.4 mg/dL (8.5-10.1) L EKG EKG [EKG: Normal sinus rhythm, no acute ST-T wave changes, right bundle branch block present.] Radiology/Procedures Radiology/Procedures [CT Head/cervical spine/chest/abdomen/pelvis: No acute intra-cranial/cervical spine/chest/abdominal tree per radiology report.] Course & Med Decision Making Course & Med Decision Making Pertinent Labs and Imaging studies reviewed. (See chart for details) [Accidental fall secondary to stumbling. Patient is using walker at time of injury. No acute injury on imaging studies. Patient with persistent chest wall pain with difficulty sitting up and standing secondary to pain despite repeat pain medication. Patient also on Pradaxa and is at high risk of delayed intracranial bleed. Will admit to hospitalist service for further evaluation and treatment. Dr. Harper to admit.] Final Impression Final Impression [1. Ataxia 2. Chest wall contusion] Problems: Dragon Disclaimer Dragon Disclaimer This electronic medical record was generated, in whole or in part, using a voice recognition dictation system. JOSEFINA PETERSON DO Jun 23, 2017 02:42
[2017-06-23] MEDS ORDERED: PRIM50TA PO (03:30)
[2017-06-23] MEDS: METOPROLOL SUCC 24HR ER 50 MG TAB.ER.24H. PO SCH (06:41)
[2017-06-23] MEDS ORDERED: DABI150C PO (08:06)
[2017-06-23] MEDS ORDERED: LIDOCAINE (700MG/PATCH) PATCH. TP SCH (09:15)
[2017-06-23] MEDS ORDERED: ALBUTEROL SULFATE 8GM INHALER. INH PRN (09:15)
[2017-06-23 09:44] LABS: ALBUMIN/GLOBULIN RATIO 0.8 (1.0-1.7); CALCIUM 8.3 mg/dL (8.5-10.1); CREATININE 1.3 mg/dL (0.6-1.0); GFR 38.6; MAGNESIUM 1.5 mg/dL (1.8-2.4); POTASSIUM 3.5 mmol/L (3.5-5.1); TOTAL BILIRUBIN 0.6 mg/dL (0.2-1.0)
[2017-06-23] MEDS: FUROSEMIDE 20 MG TABLET PO SCH (09:45)
[2017-06-23] MEDS: DULoxetine HCL 60 MG CAPSULE.DR PO SCH (09:45)
[2017-06-23] MEDS: LIDOCAINE (700MG/PATCH) PATCH. TD SCH (09:45)
[2017-06-23] MEDS ORDERED: ALBUTEROL SULFATE 2.5 MG/3 ML NEBU. NEB PRN (09:45)
[2017-06-23] MEDS: ASPIRIN ENTERIC COATED 81 MG TABLET.DR. PO SCH (09:45)
[2017-06-23] MEDS: ISOSORBIDE MONONITRATE ER 30 MG TAB.ER.24H PO SCH (09:46)
[2017-06-23] MEDS: DABIGATRAN ETEXILATE 150 MG CAPSULE. PO SCH ×2 (09:46→20:55)
[2017-06-23] MEDS: PANTOPRAZOLE 40 MG TABLET. PO SCH (09:46)
[2017-06-23] MEDS: MAGNESIUM OXIDE 400 MG TABLET PO SCH (13:52)
--- NOTE | 2017-06-23 15:14 | HP ---
ADMIT DATE: 06/22/2017 REASON FOR ADMISSION: Fall and adequate pain control. HISTORY OF PRESENT ILLNESS: This is an 89-year-old female who lives at home alone, who she states tripped over an area rug. Her knees went to the floor, her chest hit the edge of a chair, and she hit her head as well on the chair area. She came to the Emergency Room and was extensively x-rayed and did not show any current fractures. She lives by herself. She was admitted for pain management. PAST MEDICAL HISTORY: Hypertension, hyperlipidemia, chronic bronchitis, coronary artery disease with some stent deployment in 2011 and 2014, reflux, and history of anemia as well as breast cancer. She also had an admission in April 2017 for progressive shortness of breath. PAST SURGICAL HISTORY: PTCA with stent deployment x 3, bilateral cataract extractions, left eye surgery, left breast lumpectomy, left total knee arthroplasty, appendectomy, and right knee arthroscopic surgery. ALLERGIES: IODINE, SHELLFISH, and she is allergic to SIMVASTATIN. MEDICATIONS: Reviewed and corrected as appropriate and are available on the MAR. SOCIAL HISTORY: Does not smoke. She is a . She lives in her own home. She still drives and occasionally has a drink. FAMILY HISTORY: Positive for heart disease. REVIEW OF SYSTEMS: Positive pain in her sternal area, slight bruise on her forehead. Denies dizziness, headache, lightheadedness, chest pain, angina, or shortness of breath. OBJECTIVE: VITAL SIGNS: Blood pressure was 186/93 this morning, pulse 62, respirations 18, now 150/85 and pulse 65, height 67 inches, weight 160 pounds. GENERAL: An 89-year-old in no acute distress. She is sitting up in bed. She is a good historian. HEENT: Her hearing is normal. She has a bruise on her forehead. It was barely tender. Her throat is clear. The eyes are clear. NECK: Supple, no palpatory pain. LUNGS: Clear to auscultation. CARDIOVASCULAR: Regular rhythm and rate with a 2/6 systolic murmur heard best at the pulmonic area. She has some tenderness over the extreme lower part of her xiphoid process of her chest. ABDOMEN: Soft, nontender. EXTREMITIES: Without edema. MUSCULOSKELETAL: Has a skin tear in her right arm and bruising on her forehead. LABORATORY DATA: CBC is normal. Chemistry: BUN 21, creatinine 1.3, magnesium 1.5, albumin 3.0. ASSESSMENT: 1. Status post accidental fall with head contusion, right arm skin tear, and xiphoid process tenderness - x-rays negative. 2. Chronic kidney disease stage 3. 3. Hypomagnesemia, present on admission. 4. Hypoalbuminemia. 6. Mild protein-calorie malnutrition. 7. Fall risk. 8. Long-term use of anticoagulants. 9. Elevated blood pressure. PLAN: Pain management, monitor blood pressure. Adjust medications as necessary. The patient was under the impression that she could not be on Tylenol; however, she has normal liver function tests. I believe in the previous admission, she had elevated liver function tests and this may have been due to statin, so I feel she could probably take Tylenol, but we will discuss with her primary care doctor. Expected 2-night stay due to some very elevated blood pressures and would like PT and OT to evaluate as well. TOÑO CAT DO DR: JODY/dev JOB#: [id number] / [id number] SANCHO Granda MD
[2017-06-23] MEDS: PRIMIDONE 50 MG TABLET PO SCH (20:55)
[2017-06-24] VITALS (7 sets, daily range): BP systolic 124–191; BP diastolic 74–94
[2017-06-24 06:32] LABS: BASO # 0.1 x10^3/uL (0.0-0.2); BASO % 1 % (0-3); EOS # 0.6 x10^3/uL (0.0-0.7); EOS % 7 % (0-3); HEMATOCRIT 36.6 % (36.0-47.0); HEMOGLOBIN 12.4 g/dL (12.0-15.5); LYMPH # 2.5 x10^3/uL (1.0-4.8); LYMPH % 30 % (24-48); MEAN CORPUSCULAR HEMOGLOBIN 31 pg (25-35); MEAN CORPUSCULAR HGB CONC 34 g/dL (31-37); MEAN CORPUSCULAR VOLUME 91 fL (79-100); MONO # 0.9 x10^3/uL (0.0-1.1); MONO % 11 % (0-9); NEUT # 4.2 x10^3uL (1.8-7.7); NEUT % 51 % (31-73); PLATELET COUNT 156 x10^3/uL (140-400); RED BLOOD COUNT 4.05 x10^6/uL (3.50-5.40); RED CELL DISTRIBUTION WIDTH 13.9 % (11.5-14.5); WHITE BLOOD COUNT 8.2 x10^3/uL (4.0-11.0)
[2017-06-24 06:39] LABS: ALBUMIN 2.7 g/dL (3.4-5.0); ALBUMIN/GLOBULIN RATIO 0.8 (1.0-1.7); CALCIUM 7.9 mg/dL (8.5-10.1); GFR 52.2; MAGNESIUM 1.4 mg/dL (1.8-2.4); POTASSIUM 3.6 mmol/L (3.5-5.1); TOTAL BILIRUBIN 0.7 mg/dL (0.2-1.0); TOTAL PROTEIN 6.3 g/dL (6.4-8.2)
[2017-06-24] MEDS ORDERED: ESOMEPRAZOLE STRONTIUM PO SCH (07:30)
[2017-06-24] MEDS: PANTOPRAZOLE 40 MG TABLET. PO SCH (07:39)
[2017-06-24] MEDS: DABIGATRAN ETEXILATE 150 MG CAPSULE. PO SCH ×2 (07:39→21:34)
[2017-06-24] MEDS: FUROSEMIDE 20 MG TABLET PO SCH (07:40)
[2017-06-24] MEDS: ISOSORBIDE MONONITRATE ER 30 MG TAB.ER.24H PO SCH (07:40)
[2017-06-24] MEDS: DULoxetine HCL 60 MG CAPSULE.DR PO SCH (07:41)
[2017-06-24] MEDS: METOPROLOL SUCC 24HR ER 50 MG TAB.ER.24H. PO SCH (07:41)
[2017-06-24] MEDS: ASPIRIN ENTERIC COATED 81 MG TABLET.DR. PO SCH (07:41)
[2017-06-24] MEDS: MAGNESIUM OXIDE 400 MG TABLET PO SCH (07:41)
[2017-06-24] MEDS: LIDOCAINE (700MG/PATCH) PATCH. TD SCH (07:43)
[2017-06-24] MEDS: ACETAMINOPHEN 650 MG/20.3 ML SOLUTION. PO SCH ×3 (08:15→21:38)
[2017-06-24] MEDS ORDERED: DULoxetine HCL 60 MG CAPSULE.DR PO SCH (09:00)
[2017-06-24] MEDS ORDERED: ISOSORBIDE MONONITRATE ER 30 MG TAB.ER.24H PO SCH (09:00)
[2017-06-24] MEDS ORDERED: ASPIRIN ENTERIC COATED 81 MG TABLET.DR. PO SCH (09:00)
[2017-06-24] MEDS ORDERED: FUROSEMIDE 20 MG TABLET PO SCH (09:00)
[2017-06-24] MEDS ORDERED: MAGNESIUM SULFATE 2GM 50 ML IV ONE (15:00)
[2017-06-24] MEDS: HYDROcodone/APAP 5/325MG 1 TAB TABLET PO PRN (18:36)
[2017-06-24] MEDS: PRIMIDONE 50 MG TABLET PO SCH (21:34)
--- NOTE | 2017-06-25 03:14 | PN ---
DATE: PROBLEMS: 1. Status post accidental fall with head contusion, right arm skin tear, xiphoid process tenderness. 2. Chronic kidney disease stage 3. 4. Hypomagnesemia. 4. Moderate protein calorie malnutrition. 5. Fall risk. 6. Long-term use of anticoagulants. 7. Pain management. 8. Elevated blood pressure secondary to pain. HISTORY OF PRESENT ILLNESS: Now it is very sore this morning. She was under the impression that she could not take Tylenol, but there is not a contraindication between Tylenol and Pradaxa. So we will start her on some scheduled Tylenol and low dose hydrocodone. She has been getting fentanyl IV, which does not seem to help her at all, and this is concerning in an 89-year-old. Blood pressure has been up, but when the pain is controlled, it comes right back down. OBJECTIVE: VITAL SIGNS: Blood pressure 126/76, pulse 66, respirations 20, temperature 97.8, and pulse ox is 95% on room air and also 91% on room air. The patient is not taking deep breaths due to the pain. GENERAL: A frail elderly female, in no acute distress. LUNGS: Have a few crackles. CARDIOVASCULAR: Regular rhythm and rate with a 2/6 systolic murmur. ABDOMEN: Soft, nontender. EXTREMITIES: Without edema. She has a skin tear, is intact, with Steri-Strips. Lidocaine patch is helping the xiphoid process. PLAN: Incentive spirometry and because of her weakness, we were planning to do half-way for a while for her as she lives alone and could really use the physical therapy. TOÑO CAT DO DR: JODY/dev JOB#: [id number] / [id number]
[2017-06-25] MEDS: ACETAMINOPHEN 650 MG/20.3 ML SOLUTION. PO SCH (05:38)
[2017-06-25] MEDS: HYDROcodone/APAP 5/325MG 1 TAB TABLET PO PRN (06:16)
[2017-06-25 06:39] VITALS: BP 169/77
[2017-06-25] MEDS: PANTOPRAZOLE 40 MG TABLET. PO SCH (08:18)
[2017-06-25] MEDS: FUROSEMIDE 20 MG TABLET PO SCH (08:18)
[2017-06-25] MEDS: DABIGATRAN ETEXILATE 150 MG CAPSULE. PO SCH (08:19)
[2017-06-25] MEDS: ISOSORBIDE MONONITRATE ER 30 MG TAB.ER.24H PO SCH (08:19)
[2017-06-25] MEDS: DULoxetine HCL 60 MG CAPSULE.DR PO SCH (08:20)
[2017-06-25] MEDS: METOPROLOL SUCC 24HR ER 50 MG TAB.ER.24H. PO SCH (08:20)
[2017-06-25] MEDS: MAGNESIUM OXIDE 400 MG TABLET PO SCH (08:20)
[2017-06-25] MEDS: LIDOCAINE (700MG/PATCH) PATCH. TD SCH (08:20)
[2017-06-25] MEDS: ASPIRIN ENTERIC COATED 81 MG TABLET.DR. PO SCH (08:20)
[2017-06-25] MEDS ORDERED: HYDR-2758 PO (10:19)
[2017-06-25] MEDS ORDERED: PANT40TA3 PO (10:19)
[2017-06-25] MEDS ORDERED: ACET325T9 PO (10:19)
[2017-06-25] MEDS ORDERED: MAGN400T3 PO (10:19)
[2017-06-25 11:21] VITALS: BP 96/58
[2017-06-25 11:27] VITALS: BP 96/64
[2017-06-25] MEDS ORDERED: FLUT1DIS3 IH (11:28)
[2017-06-25] MEDS ORDERED: LIDO700A39 TP (11:28)
--- NOTE | 2017-06-25 12:34 | PDOC3 ---
Discharge Summary Visit Information Date of Admission: Jun 22, 2017 Date of Discharge: Jun 25, 2017 Final Diagnosis Problems Medical Problems: (1) Accidental fall Status: Acute (2) Chest wall contusion Status: Acute (3) Head injury Status: Acute (4) Scalp hematoma Status: Acute PROBLEMS: 1. Status post accidental fall with head contusion, right arm skin tear, xiphoid process tenderness. 2. Chronic kidney disease stage 3. 4. Hypomagnesemia. 4. Moderate protein calorie malnutrition. 5. Fall risk. 6. Long-term use of anticoagulants. 7. Pain management. 8. Elevated blood pressure secondary to pain. 9. RIYA DUE TO ATN DUE TO DEHYDRATION Problems: Brief Hospital Course Allergies Allergies Coded Allergies Type Severity Reaction Last Updated Verified iodine Allergy Intermediate 05/06/17 Yes shellfish derived Allergy Intermediate 05/06/17 Yes simvastatin Allergy Intermediate 05/06/17 Yes Vital Signs Vital Signs Date Time Temp Pulse Resp B/P (MAP) Pulse Ox O2 Delivery O2 Flow Rate FiO2 06/25/17 11:27 97.8 84 20 96/64 (75) 94 Room Air Lab Results Laboratory Tests Test 06/24/17 06:08 White Blood Count 8.2 x10^3/uL (4.0-11.0) Red Blood Count 4.05 x10^6/uL (3.50-5.40) Hemoglobin 12.4 g/dL (12.0-15.5) Hematocrit 36.6 % (36.0-47.0) Mean Corpuscular Volume 91 fL (79-100) Mean Corpuscular Hemoglobin 31 pg (25-35) Mean Corpuscular Hemoglobin Concent 34 g/dL (31-37) Red Cell Distribution Width 13.9 % (11.5-14.5) Platelet Count 156 x10^3/uL (140-400) Neutrophils (%) (Auto) 51 % (31-73) Lymphocytes (%) (Auto) 30 % (24-48) Monocytes (%) (Auto) 11 % (0-9) Eosinophils (%) (Auto) 7 % (0-3) Basophils (%) (Auto) 1 % (0-3) Neutrophils # (Auto) 4.2 x10^3uL (1.8-7.7) Lymphocytes # (Auto) 2.5 x10^3/uL (1.0-4.8) Monocytes # (Auto) 0.9 x10^3/uL (0.0-1.1) Eosinophils # (Auto) 0.6 x10^3/uL (0.0-0.7) Basophils # (Auto) 0.1 x10^3/uL (0.0-0.2) Sodium Level 139 mmol/L (136-145) Potassium Level 3.6 mmol/L (3.5-5.1) Chloride Level 103 mmol/L (98-107) Carbon Dioxide Level 30 mmol/L (21-32) Anion Gap 6 (6-14) Blood Urea Nitrogen 16 mg/dL (7-20) Creatinine 1.0 mg/dL (0.6-1.0) Estimated GFR (Cockcroft-Gault) 52.2 BUN/Creatinine Ratio 16 (6-20) Glucose Level 103 mg/dL (70-99) Calcium Level 7.9 mg/dL (8.5-10.1) Magnesium Level 1.4 mg/dL (1.8-2.4) Total Bilirubin 0.7 mg/dL (0.2-1.0) Aspartate Amino Transf (AST/SGOT) 34 U/L (15-37) Alanine Aminotransferase (ALT/SGPT) 25 U/L (14-59) Alkaline Phosphatase 67 U/L (46-116) Total Protein 6.3 g/dL (6.4-8.2) Albumin 2.7 g/dL (3.4-5.0) Albumin/Globulin Ratio 0.8 (1.0-1.7) Brief Hospital Course Ms. Plata is a 89 old [sex] who presented with [ ] HISTORY OF PRESENT ILLNESS: This is an 89-year-old female who lives at home alone, who she states tripped over an area rug. Her knees went to the floor, her chest hit the edge of a chair, and she hit her head as well on the chair area. She came to the Emergency Room and was extensively x-rayed and did not show any current fractures. She lives by herself. She was admitted for pain management. she was also mildly dehydrated and was orally hydrated nicely and her kidney function improved. As she was very weak and at significant risk for falling again at [facility] and the fact that she lives alone made her an excellent candidate for retirement services at [place]. She was discharged to Long Term on 06/25 Discharge Information Condition at Discharge: Improved Disposition/Orders: Other ([facility]URSING SERVICES.) Dischare Medications Current Medications Fentanyl Citrate (Fentanyl 2ml Vial) 50 mcg 1X ONCE IV Last administered on 19:55; Start 06/22/17 at 20:00; Stop 06/22/17 at 20:01; Status DC Lidocaine (Lidoderm) 1 patch 1X ONCE TD Last administered on 06/22/17 21:00 ; Start 06/22/17 at 20:45; Stop 06/22/17 at 20:46; Status DC Acetaminophen (Tylenol) 650 mg PRN Q8HRS PRN PO PAIN / TEMP; Start 06/22/17 at 23:30; Stop 06/25/17 at 10:20; Status DC Ketorolac Tromethamine (Toradol) 15 mg 1X ONCE IV Last administered on 00:08; Start 06/22/17 at 23:30; Stop 06/22/17 at 23:32; Status DC Lidocaine (Lidoderm) 1 patch DAILY TD Last administered on 06/25/17 08:20; Start 06/23/17 at 09:00; Stop 06/25/17 at 10:20; Status DC Fentanyl Citrate (Fentanyl 2ml Vial) 25 mcg PRN Q2HR PRN IV SEVERE PAIN Last administered on 06/24/17 07:42; Start 06/23/17 at 01:15; Stop 06/24/17 at 07 :49; Status DC Metoprolol Succinate (Toprol Xl) 50 mg DAILY PO Last administered on 08:20; Start 06/23/17 at 07:00; Stop 06/25/17 at 10:20; Status DC Albuterol Sulfate (Ventolin Hfa) 1 puff PRN Q6HRS PRN INH SHORTNESS OF BREATH; Start 06/23/17 at 09:15; Status UNV Aspirin (Aspirin Enteric Coated) 81 mg DAILY PO ; Start 06/24/17 at 09:00; Stop 06/24/17 at 09:00; Status DC Dabigatran (Pradaxa) 150 mg BID PO Last administered on 06/25/17 08:19; Start 06/23/17 at 09:30; Stop 06/25/17 at 10:20; Status DC Duloxetine HCl (Cymbalta) 60 mg DAILY PO ; Start 06/24/17 at 09:00; Stop 06/24 at 09:00; Status DC Furosemide (Lasix) 20 mg DAILY PO ; Start 06/24/17 at 09:00; Stop 06/24/17 at 09:00; Status DC Isosorbide Mononitrate (Imdur) 60 mg DAILY PO ; Start 06/24/17 at 09:00; Stop 06/24/17 at 09:00; Status DC Lidocaine (Lidoderm) 1 patch PRN Q24HRS TP Last administered on 06/24/17 07: 43; Start 06/23/17 at 09:15; Stop 06/25/17 at 10:20; Status DC Primidone (Mysoline) 25 mg QHS PO Last administered on 06/24/17 21:34; Start 06/23/17 at 21:00; Stop 06/25/17 at 10:20; Status DC Non-Formulary Medication 20 mg DAILYAC PO ; Start 06/24/17 at 07:30; Stop at 07:30; Status DC Aspirin (Aspirin Enteric Coated) 81 mg DAILY PO Last administered on 08:20; Start 06/23/17 at 09:30; Stop 06/25/17 at 10:20; Status DC Duloxetine HCl (Cymbalta) 60 mg DAILY PO Last administered on 06/25/17 08:20 ; Start 06/23/17 at 09:30; Stop 06/25/17 at 10:20; Status DC Furosemide (Lasix) 20 mg DAILY PO Last administered on 06/25/17 08:18; Start 06/23/17 at 09:30; Stop 06/25/17 at 10:20; Status DC Isosorbide Mononitrate (Imdur) 60 mg DAILY PO Last administered on 06/25/17 08:19; Start 06/23/17 at 09:30; Stop 06/25/17 at 10:20; Status DC Pantoprazole Sodium (Protonix) 40 mg DAILYAC PO Last administered on 08:18; Start 06/23/17 at 09:30; Stop 06/25/17 at 10:20; Status DC Albuterol Sulfate (Ventolin) 2.5 mg PRN Q6HRS PRN NEB SHORTNESS OF BREATH; Start 06/23/17 at 09:45; Stop 06/25/17 at 10:20; Status DC Magnesium Oxide (Magnesium Oxide) 400 mg DAILY PO Last administered on 08:20; Start 06/23/17 at 11:00; Stop 06/25/17 at 10:20; Status DC Acetaminophen (Tylenol) 650 mg Q8HRS PO ; Start 06/24/17 at 08:15; Stop at 10:20; Status DC Acetaminophen/ Hydrocodone Bitart (Lortab 5/325) 1 tab PRN Q6HRS PRN PO PAIN Last administered on 06/25/17 06:16; Start 06/24/17 at 08:15; Stop 06/25/17 at 10:20; Status DC Magnesium Sulfate 50 ml @ 25 mls/hr 1X ONCE IV Last administered on 18:37; Start 06/24/17 at 15:00; Stop 06/24/17 at 16:59; Status DC Non-Formulary Medication 1 ea BID INH ; Start 06/25/17 at 21:00; Stop at 21:00; Status DC Active Scripts Active Reported Lidocaine 1 Each Adh..patch 1 Each TP DAILY TO CHEST Advair 250-50 Diskus (Fluticasone/Salmeterol) 1 Each Disk.w.dev 1 Puff IH BID Hydrocodone-Apap 5-325 (Hydrocodone Bit/Acetaminophen) 1 Each Tablet 1 Tab PO PRN Q6HRS PRN Protonix (Pantoprazole Sodium) 40 Mg Tablet. 1 Tab PO DAILY Magnesium Oxide 400 Mg Tablet 1 Tab PO DAILY Tylenol (Acetaminophen) 325 Mg Tablet 650 Mg PO PRN Q8HRS Pradaxa (Dabigatran Etexilate Mesylate) 150 Mg Capsule 1 Cap PO BID LAST DOSE GIVEN: DATE: TIME: NEXT DOSE DUE: DATE: TIME: Primidone 50 Mg Tablet 25 Mg PO QHS LAST DOSE GIVEN: DATE: TIME: NEXT DOSE DUE: DATE: TIME: Aspir-Low (Aspirin) 81 Mg Tablet.dr 1 Tab PO DAILY LAST DOSE GIVEN: DATE: TIME: NEXT DOSE DUE: DATE: TIME: Proair Hfa Inhaler (Albuterol Sulfate) 8.5 Gm Hfa.aer.ad 1 Puff INH PRN Q6HRS PRN LAST DOSE GIVEN: DATE: TIME: NEXT DOSE DUE: DATE: TIME: Lasix (Furosemide) 20 Mg Tablet 1 Tab PO DAILY LAST DOSE GIVEN: DATE: TIME: NEXT DOSE DUE: DATE: TIME: Metoprolol Succinate ( Xl ) (Metoprolol Succinate) 50 Mg Tab.er.24h 1 Tab PO DAILY LAST DOSE GIVEN: DATE: TIME: NEXT DOSE DUE: DATE: TIME: Lidoderm (Lidocaine) 700 Mg Adh..patch 700 Mg TP PRN Q24HRS LAST DOSE GIVEN: DATE: TIME: NEXT DOSE DUE: DATE: TIME: Boniva (Ibandronate Sodium) 150 Mg Tablet 150 Mg PO LAST DOSE GIVEN: DATE: TIME: NEXT DOSE DUE: DATE: TIME: Cymbalta (Duloxetine Hcl) 60 Mg Capsule.dr 60 Mg PO DAILY LAST DOSE GIVEN: DATE: TIME: NEXT DOSE DUE: DATE: TIME: Imdur (Isosorbide Mononitrate) 30 Mg Tab.er.24h 60 Mg PO DAILY LAST DOSE GIVEN: DATE: TIME: NEXT DOSE DUE: DATE: TIME: Esomeprazole Capsule (Esomeprazole Strontium) 40 Mg Capsule.dr 20 Mg PO DAILYAC LAST DOSE GIVEN: DATE: TIME: NEXT DOSE DUE: DATE: TIME: Patient Instructions Patient Instuctions TRANSFER TO SWING BED/ INTERMEDIATE TOÑO CAT DO Jun 25, 2017 12:34
--- NOTE | 2017-06-25 13:19 | EKG ---
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
[2017-06-25] MEDS ORDERED: ADVAIR DISCUS INH SCH (21:00)
== END 2017-06-25 10:20 | disposition swing bed (61) | DRG 604 ==
LOC: ER 18:00 → 1 SOUTH 20:31
PROVIDERS: ADMIT Family Medicine; ATTEND Family Medicine
DX: S00.03XA Contusion of scalp, initial encounter (principal); N17.0 Acute kidney failure with tubular necrosis; E44.0 Moderate protein-calorie malnutrition; I48.91 Unspecified atrial fibrillation; E86.0 Dehydration; E83.42 Hypomagnesemia; E78.5 Hyperlipidemia, unspecified; F32.9 Major depressive disorder, single episode, unspecified; W01.0XXA Fall on same level from slipping, tripping and stumbling without subsequent striking against object, initial encounter; I12.9 Hypertensive chronic kidney disease with stage 1 through stage 4 chronic kidney disease, or unspecified chronic kidney disease; Z68.25 Body mass index [BMI] 25.0-25.9, adult; I25.10 Atherosclerotic heart disease of native coronary artery without angina pectoris; J44.9 Chronic obstructive pulmonary disease, unspecified; K21.9 Gastro-esophageal reflux disease without esophagitis; N18.3 Chronic kidney disease, stage 3 (moderate); S20.219A Contusion of unspecified front wall of thorax, initial encounter; W22.8XXA Striking against or struck by other objects, initial encounter; S41.111A Laceration without foreign body of right upper arm, initial encounter; Z96.652 Presence of left artificial knee joint; Z79.01 Long term (current) use of anticoagulants; Z85.3 Personal history of malignant neoplasm of breast; Z91.81 History of falling; Z95.5 Presence of coronary angioplasty implant and graft; Z98.41 Cataract extraction status, right eye; Z98.42 Cataract extraction status, left eye; Z88.8 Allergy status to other drugs, medicaments and biological substances; Z88.6 Allergy status to analgesic agent; Z91.013 Allergy to seafood; Z90.49 Acquired absence of other specified parts of digestive tract; Y93.89 Activity, other specified; Y99.8 Other external cause status; Y92.098 Other place in other non-institutional residence as the place of occurrence of the external cause; Z60.2 Problems related to living alone
CPT/HCPCS: 36415; 70450; 71250; 72125; 74176; 80048; 80053; 83735; 85025; 93005; 96374; J1885; J3010; J3475; 99285-25

== ENCOUNTER 2017-06-25 10:35 | Inpatient (IN) | payer MEDICARE, OTHER ==
[~2017-06-25] VITALS: Ht 170.2 cm; Wt 71.7 kg
[~2017-06-25 10:35] MED LIST changes: +ACET325T9 PO; +HYDR-2758 PO; +MAGN400T3 PO; +PANT40TA3 PO
[2017-06-25] MEDS ORDERED: FLUT1DIS3 IH (11:28)
[2017-06-25] MEDS ORDERED: LIDO700A39 TP (11:28)
[2017-06-25] MEDS ORDERED: ALBUTEROL SULFATE 8GM INHALER. INH PRN (11:30)
[2017-06-25] MEDS ORDERED: ACETAMINOPHEN 325 MG TABLET PO PRN (11:30)
[2017-06-25] MEDS ORDERED: ALBUTEROL SULFATE 2.5 MG/3 ML NEBU. NEB PRN (12:00)
[2017-06-25] MEDS: HYDROcodone/APAP 5/325MG 1 TAB TABLET PO PRN ×2 (15:22→20:52)
--- NOTE | 2017-06-25 16:56 | HP ---
ADMIT DATE: 06/25/2017 REASON FOR ADMISSION: Weakness, status post fall with contusion and need of PT and OT. HISTORY OF PRESENT ILLNESS: This is an 89-year-old female who fell several days ago when she tripped over a rug in her home. She hit her head. She had a significant skin tear on the right and had some xiphoid musculoskeletal chest pain as well as some back pain. She was extensively x-rayed and the x-rays were negative. She was, however, quite weak and was deemed an excellent candidate for correction services. PAST MEDICAL HISTORY: Hypertension, hyperlipidemia, chronic bronchitis, coronary artery disease status post PTCA with stent deployment in 2011 and 2015, GERD, history of anemia as well as breast cancer. PAST SURGICAL HISTORY: PTCA with stent deployment x 3, bilateral cataract extractions, left eye surgery, left breast lumpectomy, left total knee arthroplasty, appendectomy, and right knee arthroplastic surgery. ALLERGIES: IODINE, SHELLFISH DERIVED, and SIMVASTATIN. MEDICATIONS: Reviewed, corrected, and changed and the new list is available on the MAR. REVIEW OF SYSTEMS: For other information, please refer to hospitalized H and P from hospitalization. OBJECTIVE: VITAL SIGNS: Height 67 inches, weight of 160 pounds, blood pressure this morning was 96/64, pulse 84, respirations 20, pulse ox 94% on room air, temperature 97.8. GENERAL: Elderly female in no acute distress. She is resting comfortably. HEENT: Her eyes were clear. Nose was patent. Throat was clear. Tongue was moist. NECK: Supple. LUNGS: Clear, no crackles. CARDIOVASCULAR: Regular rhythm and rate. ABDOMEN: Soft, nontender. EXTREMITIES: Without edema. ASSESSMENT: 1. Weakness. 2. Status post fall with contusion to the forehead, right arm skin tear, xiphoid process pain and back pain. 3. Chronic bronchitis. 4. Nocturnal oxygen requiring. 5. Coronary artery disease. 6. Reflux. 7. Long-term use of anticoagulants. PLAN: Admit to correction services. TOÑO CAT DO DR: JODY/dev JOB#: [id number] / [id number]
[2017-06-25 19:11] VITALS: BP 175/71
[2017-06-25] MEDS: DOCUSATE SODIUM 100 MG CAPSULE PO SCH (20:51)
[2017-06-25] MEDS: DABIGATRAN ETEXILATE 150 MG CAPSULE. PO SCH (20:51)
[2017-06-25] MEDS: PRIMIDONE 50 MG TABLET PO SCH (20:52)
[2017-06-25] MEDS: ADVAIR DISCUS INH SCH (20:54)
[2017-06-26] MEDS: HYDROcodone/APAP 5/325MG 1 TAB TABLET PO PRN ×3 (03:15→20:34)
[2017-06-26 06:37] VITALS: BP 181/91
[2017-06-26] MEDS: MAGNESIUM OXIDE 400 MG TABLET PO SCH (08:08)
[2017-06-26] MEDS: ISOSORBIDE MONONITRATE ER 30 MG TAB.ER.24H PO SCH (08:08)
[2017-06-26] MEDS: DULoxetine HCL 60 MG CAPSULE.DR PO SCH (08:08)
[2017-06-26] MEDS: PANTOPRAZOLE 40 MG TABLET. PO SCH (08:08)
[2017-06-26] MEDS: DOCUSATE SODIUM 100 MG CAPSULE PO SCH ×2 (08:08→20:33)
[2017-06-26] MEDS: ASPIRIN ENTERIC COATED 81 MG TABLET.DR. PO SCH (08:08)
[2017-06-26] MEDS: DABIGATRAN ETEXILATE 150 MG CAPSULE. PO SCH ×2 (08:08→20:33)
[2017-06-26] MEDS: METOPROLOL SUCC 24HR ER 50 MG TAB.ER.24H. PO SCH (08:09)
[2017-06-26] MEDS: ADVAIR DISCUS INH SCH ×2 (08:10→20:34)
[2017-06-26] MEDS: FUROSEMIDE 20 MG TABLET PO SCH (08:10)
[2017-06-26] MEDS: LIDOCAINE (700MG/PATCH) PATCH. TP SCH (08:10)
[2017-06-26 10:50] VITALS: BP 132/79
[2017-06-26] MEDS ORDERED: POLYETHYLENE GLYCOL 3350 17 GM PACKET. PO SCH (13:00)
[2017-06-26] MEDS ORDERED: POLYETHYLENE GLYCOL 3350 17 GM PACKET. PO PRN (17:00)
[2017-06-26 18:14] VITALS: BP 133/68
[2017-06-26] MEDS: PRIMIDONE 50 MG TABLET PO SCH (20:33)
[2017-06-26] MEDS ORDERED: LISINOPRIL 10 MG TABLET PO SCH (21:00)
[2017-06-26 23:39] VITALS: BP 148/84
[2017-06-27 05:25] VITALS: BP 172/96
[2017-06-27] MEDS: ASPIRIN ENTERIC COATED 81 MG TABLET.DR. PO SCH (08:14)
[2017-06-27] MEDS: DOCUSATE SODIUM 100 MG CAPSULE PO SCH ×2 (08:14→20:03)
[2017-06-27] MEDS: MAGNESIUM OXIDE 400 MG TABLET PO SCH (08:14)
[2017-06-27] MEDS: FUROSEMIDE 20 MG TABLET PO SCH (08:14)
[2017-06-27] MEDS: PANTOPRAZOLE 40 MG TABLET. PO SCH (08:14)
[2017-06-27] MEDS: ISOSORBIDE MONONITRATE ER 30 MG TAB.ER.24H PO SCH (08:15)
[2017-06-27] MEDS: HYDROcodone/APAP 5/325MG 1 TAB TABLET PO PRN ×2 (08:15→20:03)
[2017-06-27] MEDS: METOPROLOL SUCC 24HR ER 50 MG TAB.ER.24H. PO SCH (08:15)
[2017-06-27] MEDS: DULoxetine HCL 60 MG CAPSULE.DR PO SCH (08:15)
[2017-06-27] MEDS: LIDOCAINE (700MG/PATCH) PATCH. TP SCH (08:16)
[2017-06-27] MEDS: ADVAIR DISCUS INH SCH ×2 (08:16→20:03)
[2017-06-27] MEDS: DABIGATRAN ETEXILATE 150 MG CAPSULE. PO SCH ×2 (08:16→20:03)
[2017-06-27] MEDS ORDERED: POLYETHYLENE GLYCOL 3350 17 GM PACKET. PO PRN (13:00)
[2017-06-27 20:00] VITALS: BP 120/74
[2017-06-27] MEDS: LISINOPRIL 20 MG TABLET PO SCH (20:02)
[2017-06-27] MEDS: PRIMIDONE 50 MG TABLET PO SCH (20:03)
[2017-06-28 05:33] VITALS: BP 156/90
[2017-06-28 06:29] LABS: BASO # 0.1 x10^3/uL (0.0-0.2); BASO % 1 % (0-3); EOS # 0.6 x10^3/uL (0.0-0.7); EOS % 7 % (0-3); HEMATOCRIT 40.8 % (36.0-47.0); HEMOGLOBIN 13.5 g/dL (12.0-15.5); LYMPH # 2.9 x10^3/uL (1.0-4.8); LYMPH % 33 % (24-48); MEAN CORPUSCULAR HEMOGLOBIN 31 pg (25-35); MEAN CORPUSCULAR HGB CONC 33 g/dL (31-37); MEAN CORPUSCULAR VOLUME 93 fL (79-100); MONO # 0.8 x10^3/uL (0.0-1.1); MONO % 9 % (0-9); NEUT # 4.4 x10^3uL (1.8-7.7); NEUT % 50 % (31-73); PLATELET COUNT 214 x10^3/uL (140-400); RED CELL DISTRIBUTION WIDTH 14.5 % (11.5-14.5); WHITE BLOOD COUNT 8.8 x10^3/uL (4.0-11.0)
[2017-06-28 06:40] LABS: ALBUMIN/GLOBULIN RATIO 0.7 (1.0-1.7); CALCIUM 8.6 mg/dL (8.5-10.1); CREATININE 1.3 mg/dL (0.6-1.0); GFR 38.6; MAGNESIUM 1.8 mg/dL (1.8-2.4); POTASSIUM 4.1 mmol/L (3.5-5.1); TOTAL BILIRUBIN 0.7 mg/dL (0.2-1.0); TOTAL PROTEIN 7.5 g/dL (6.4-8.2)
[2017-06-28] MEDS: DOCUSATE SODIUM 100 MG CAPSULE PO SCH ×2 (09:23→19:35)
[2017-06-28] MEDS: ASPIRIN ENTERIC COATED 81 MG TABLET.DR. PO SCH (09:23)
[2017-06-28] MEDS: ADVAIR DISCUS INH SCH ×2 (09:23→19:37)
[2017-06-28] MEDS: DULoxetine HCL 60 MG CAPSULE.DR PO SCH (09:23)
[2017-06-28] MEDS: ISOSORBIDE MONONITRATE ER 30 MG TAB.ER.24H PO SCH (09:24)
[2017-06-28] MEDS: METOPROLOL SUCC 24HR ER 50 MG TAB.ER.24H. PO SCH (09:25)
[2017-06-28] MEDS: FUROSEMIDE 20 MG TABLET PO SCH (09:25)
[2017-06-28] MEDS: DABIGATRAN ETEXILATE 150 MG CAPSULE. PO SCH ×2 (09:25→19:35)
[2017-06-28] MEDS: MAGNESIUM OXIDE 400 MG TABLET PO SCH (09:25)
[2017-06-28] MEDS: PANTOPRAZOLE 40 MG TABLET. PO SCH (09:25)
[2017-06-28] MEDS: LIDOCAINE (700MG/PATCH) PATCH. TP SCH (09:41)
[2017-06-28] MEDS: HYDROcodone/APAP 5/325MG 1 TAB TABLET PO PRN ×2 (13:59→19:34)
[2017-06-28 14:59] VITALS: BP 106/66
--- NOTE | 2017-06-28 18:08 | PN ---
DATE: 06/28/2017 PROBLEMS: Include: 1. Hypertension. 2. Weakness. 3. Status post fall with forehead contusion and sternum pain. 4. Frail elderly. 5. Nocturnal oxygen hypoxia. 6. Long-term use coagulants. 7. Constipation. NARRATIVE: Doing well, has had some good relief with MiraLax with the constipation. She is taking hydrocodone without difficulty. She is not having side effects. She is doing well with her PT, lisinopril was added at night and has been increased to 20 mg to try to offset some of the high blood pressure she has been having. OBJECTIVE: VITAL SIGNS: Blood pressure 156/90, pulse 65, temperature 98.3, pulse ox 92% on room air and that was when she was awaken this morning. She is sitting up eating her breakfast, not having any difficulty. NECK: Supple. LUNGS: Clear. CARDIOVASCULAR: Regular rhythm and rate. ABDOMEN: Soft, nontender. EXTREMITIES: Without edema. PLAN: Continue swing bed status. TOÑO CAT DO DR: JODY/dev JOB#: [id number] / [id number]
[2017-06-28] MEDS: LISINOPRIL 20 MG TABLET PO SCH (19:35)
[2017-06-28] MEDS: PRIMIDONE 50 MG TABLET PO SCH (19:35)
[2017-06-28 20:30] VITALS: BP 123/70
[2017-06-28 23:38] VITALS: BP 125/64
[2017-06-29] MEDS: DABIGATRAN ETEXILATE 150 MG CAPSULE. PO SCH ×2 (08:44→20:30)
[2017-06-29] MEDS: FUROSEMIDE 20 MG TABLET PO SCH (08:45)
[2017-06-29] MEDS: MAGNESIUM OXIDE 400 MG TABLET PO SCH (08:45)
[2017-06-29] MEDS: METOPROLOL SUCC 24HR ER 50 MG TAB.ER.24H. PO SCH (08:45)
[2017-06-29] MEDS: PANTOPRAZOLE 40 MG TABLET. PO SCH (08:45)
[2017-06-29] MEDS: ASPIRIN ENTERIC COATED 81 MG TABLET.DR. PO SCH (08:45)
[2017-06-29] MEDS: DULoxetine HCL 60 MG CAPSULE.DR PO SCH (08:45)
[2017-06-29] MEDS: HYDROcodone/APAP 5/325MG 1 TAB TABLET PO PRN ×2 (08:45→20:31)
[2017-06-29] MEDS: DOCUSATE SODIUM 100 MG CAPSULE PO SCH ×2 (08:45→20:31)
[2017-06-29] MEDS: ISOSORBIDE MONONITRATE ER 30 MG TAB.ER.24H PO SCH (08:46)
[2017-06-29] MEDS: LIDOCAINE (700MG/PATCH) PATCH. TP SCH (08:46)
[2017-06-29] MEDS: ADVAIR DISCUS INH SCH ×2 (08:46→20:32)
[2017-06-29 14:52] VITALS: BP 113/68
[2017-06-29 20:01] VITALS: BP 129/79
[2017-06-29] MEDS: LISINOPRIL 20 MG TABLET PO SCH (20:32)
[2017-06-29] MEDS: PRIMIDONE 50 MG TABLET PO SCH (20:33)
--- NOTE | 2017-06-30 00:28 | PN ---
DATE: 06/29/2017 SUBJECTIVE: The patient is an 89-year-old female patient who was admitted with another fall. She apparently has been consistently tripping in her rug in her living room, sustaining multiple bruises on her chest and complaining of pain in her chest and knees. She is on a swing bed now, to continue with the process of rehabilitation with physical and occupational therapy. When I questioned her this morning, she was still complaining of pain in her chest, especially when taking a deep breath. She is also complaining of pain in her knees, more so on the left than the right; however, she has been participating with physical therapy, walking with a walker. Denied any shortness of breath, orthopnea or paroxysmal nocturnal dyspnea. Denied any cough, phlegm or hemoptysis. Denied any chills, rigors or fever. OBJECTIVE: GENERAL: When I examined her, she was somewhat pale, cachectic, but no jaundice, cyanosis, lymphadenopathy or thyromegaly. No jugular venous distention. No limb edema. VITAL SIGNS: Her heart rate was 73, blood pressure was 125/64, temperature was 98.1, respiratory rate 20, and oxygen saturation was 94%. HEENT: Showed normocephalic, atraumatic. NECK: Supple. HEART: Showed normal first and second heart sounds with no gallop, rub or murmur. CHEST: Clear to auscultation. No crepitation or rhonchi. She clearly has multiple bruises, particularly involving her right breast. ABDOMEN: Scaphoid, soft, nontender. No guarding or rigidity. No organomegaly. Hernial orifices intact. Bowel sounds normal. NEUROLOGIC: She was awake, alert, responding appropriately. Cranial nerves intact. She moves extremities without difficulty. She ambulates with a walker with standby assist. Her intake over the last 24 hours was 1000, no output was recorded. LABORATORY DATA: Her most recent lab work as of yesterday showed a white cell count of 8800, hemoglobin 13.5, hematocrit 41, MCV 93, and platelet count 214,000. Her serum sodium was 136, potassium 4.1, chloride 99, bicarbonate 31, anion gap of 6, BUN 29, creatinine 1.3, estimated GFR was 38.6 mL per minute. Her glucose was 105, calcium was 8.6, magnesium was 1.8. Total bilirubin, AST, ALT, alkaline phosphatase were normal. Her total protein was 7.5, albumin 3. ASSESSMENT: The patient is status post fall with forehead contusion, sternal pain as well as both knee joints pain. Hypertension seems to be reasonably controlled, weakness and debility, nocturnal oxygen, hypoxia, long-term use anticoagulation for bilateral pulmonary emboli, chronic constipation. PLAN: To continue with physical and occupational therapy. Continue with pain management. Continue with Pradaxa for her bilateral pulmonary emboli. Continue with pain management. We suggested that she might add Lidoderm patch to both knees. BOB DEWITT MD DR: ERICKSON/dev JOB#: [id number] / [id number]
[2017-06-30 05:21] VITALS: BP 176/66
[2017-06-30] MEDS: DABIGATRAN ETEXILATE 150 MG CAPSULE. PO SCH ×2 (08:51→21:18)
[2017-06-30] MEDS: PANTOPRAZOLE 40 MG TABLET. PO SCH (08:51)
[2017-06-30] MEDS: ISOSORBIDE MONONITRATE ER 30 MG TAB.ER.24H PO SCH (08:51)
[2017-06-30] MEDS: FUROSEMIDE 20 MG TABLET PO SCH (08:51)
[2017-06-30] MEDS: MAGNESIUM OXIDE 400 MG TABLET PO SCH (08:51)
[2017-06-30] MEDS: ASPIRIN ENTERIC COATED 81 MG TABLET.DR. PO SCH (08:51)
[2017-06-30] MEDS: DULoxetine HCL 60 MG CAPSULE.DR PO SCH (08:51)
[2017-06-30] MEDS: ADVAIR DISCUS INH SCH ×2 (08:52→21:18)
[2017-06-30] MEDS: HYDROcodone/APAP 5/325MG 1 TAB TABLET PO PRN (08:52)
[2017-06-30] MEDS: METOPROLOL SUCC 24HR ER 50 MG TAB.ER.24H. PO SCH (08:52)
[2017-06-30] MEDS: DOCUSATE SODIUM 100 MG CAPSULE PO SCH ×2 (08:52→21:18)
[2017-06-30 19:20] VITALS: BP 135/68
[2017-06-30] MEDS: PRIMIDONE 50 MG TABLET PO SCH (21:17)
[2017-06-30] MEDS: LISINOPRIL 20 MG TABLET PO SCH (21:23)
[2017-07-01 05:50] VITALS: BP 148/80
[2017-07-01] MEDS: ADVAIR DISCUS INH SCH ×2 (08:56→20:23)
[2017-07-01] MEDS: ISOSORBIDE MONONITRATE ER 30 MG TAB.ER.24H PO SCH (08:57)
[2017-07-01] MEDS: ASPIRIN ENTERIC COATED 81 MG TABLET.DR. PO SCH (08:57)
[2017-07-01] MEDS: PANTOPRAZOLE 40 MG TABLET. PO SCH (08:57)
[2017-07-01] MEDS: METOPROLOL SUCC 24HR ER 50 MG TAB.ER.24H. PO SCH (08:57)
[2017-07-01] MEDS: DOCUSATE SODIUM 100 MG CAPSULE PO SCH ×2 (08:57→20:23)
[2017-07-01] MEDS: DABIGATRAN ETEXILATE 150 MG CAPSULE. PO SCH ×2 (08:57→20:23)
[2017-07-01] MEDS: FUROSEMIDE 20 MG TABLET PO SCH (08:57)
[2017-07-01] MEDS: DULoxetine HCL 60 MG CAPSULE.DR PO SCH (08:58)
[2017-07-01] MEDS: MAGNESIUM OXIDE 400 MG TABLET PO SCH (08:58)
[2017-07-01 18:31] VITALS: BP 112/72
[2017-07-01] MEDS: LISINOPRIL 20 MG TABLET PO SCH (20:24)
[2017-07-01] MEDS: PRIMIDONE 50 MG TABLET PO SCH (20:24)
[2017-07-01] MEDS: LIDOCAINE (700MG/PATCH) PATCH. TP PRN (22:00)
[2017-07-02] MEDS: HYDROcodone/APAP 5/325MG 1 TAB TABLET PO PRN ×2 (02:10→20:36)
[2017-07-02 06:04] VITALS: BP 160/79
[2017-07-02] MEDS: DABIGATRAN ETEXILATE 150 MG CAPSULE. PO SCH ×2 (08:35→20:35)
[2017-07-02] MEDS: DOCUSATE SODIUM 100 MG CAPSULE PO SCH ×2 (08:36→20:35)
[2017-07-02] MEDS: METOPROLOL SUCC 24HR ER 50 MG TAB.ER.24H. PO SCH (08:36)
[2017-07-02] MEDS: DULoxetine HCL 60 MG CAPSULE.DR PO SCH (08:37)
[2017-07-02] MEDS: FUROSEMIDE 20 MG TABLET PO SCH (08:37)
[2017-07-02] MEDS: ISOSORBIDE MONONITRATE ER 30 MG TAB.ER.24H PO SCH (08:37)
[2017-07-02] MEDS: ASPIRIN ENTERIC COATED 81 MG TABLET.DR. PO SCH (08:37)
[2017-07-02] MEDS: ADVAIR DISCUS INH SCH ×2 (08:38→20:38)
[2017-07-02] MEDS: MAGNESIUM OXIDE 400 MG TABLET PO SCH (08:38)
[2017-07-02] MEDS: PANTOPRAZOLE 40 MG TABLET. PO SCH (08:38)
[2017-07-02 18:15] VITALS: BP 104/55
[2017-07-02] MEDS: LISINOPRIL 20 MG TABLET PO SCH (20:35)
[2017-07-02] MEDS: PRIMIDONE 50 MG TABLET PO SCH (20:36)
[2017-07-02] MEDS: LIDOCAINE (700MG/PATCH) PATCH. TP PRN (20:41)
[2017-07-03 06:02] LABS: BASO # 0.1 x10^3/uL (0.0-0.2); BASO % 1 % (0-3); EOS # 0.8 x10^3/uL (0.0-0.7); EOS % 10 % (0-3); HEMATOCRIT 35.6 % (36.0-47.0); HEMOGLOBIN 11.9 g/dL (12.0-15.5); LYMPH # 2.8 x10^3/uL (1.0-4.8); LYMPH % 35 % (24-48); MEAN CORPUSCULAR HEMOGLOBIN 31 pg (25-35); MEAN CORPUSCULAR HGB CONC 33 g/dL (31-37); MEAN CORPUSCULAR VOLUME 92 fL (79-100); MONO # 0.9 x10^3/uL (0.0-1.1); MONO % 11 % (0-9); NEUT # 3.5 x10^3uL (1.8-7.7); NEUT % 44 % (31-73); PLATELET COUNT 242 x10^3/uL (140-400); RED BLOOD COUNT 3.88 x10^6/uL (3.50-5.40)
[2017-07-03 06:03] VITALS: BP_SYST 164; BP_SYST 185; BP_DIAS 81; BP_DIAS 82
[2017-07-03 06:14] LABS: ALBUMIN 2.5 g/dL (3.4-5.0); ALBUMIN/GLOBULIN RATIO 0.7 (1.0-1.7); CALCIUM 8.4 mg/dL (8.5-10.1); CREATININE 1.3 mg/dL (0.6-1.0); GFR 38.6; POTASSIUM 4.6 mmol/L (3.5-5.1); TOTAL BILIRUBIN 0.4 mg/dL (0.2-1.0); TOTAL PROTEIN 6.1 g/dL (6.4-8.2)
[2017-07-03] MEDS: DABIGATRAN ETEXILATE 150 MG CAPSULE. PO SCH (08:27)
[2017-07-03] MEDS: DOCUSATE SODIUM 100 MG CAPSULE PO SCH (08:27)
[2017-07-03] MEDS: DULoxetine HCL 60 MG CAPSULE.DR PO SCH (08:27)
[2017-07-03] MEDS: MAGNESIUM OXIDE 400 MG TABLET PO SCH (08:27)
[2017-07-03] MEDS: METOPROLOL SUCC 24HR ER 50 MG TAB.ER.24H. PO SCH (08:27)
[2017-07-03] MEDS: ASPIRIN ENTERIC COATED 81 MG TABLET.DR. PO SCH (08:27)
[2017-07-03] MEDS: PANTOPRAZOLE 40 MG TABLET. PO SCH (08:27)
[2017-07-03 08:28] VITALS: BP 164/81
[2017-07-03] MEDS: ADVAIR DISCUS INH SCH (08:28)
[2017-07-03] MEDS: FUROSEMIDE 20 MG TABLET PO SCH (08:28)
[2017-07-03] MEDS: ISOSORBIDE MONONITRATE ER 30 MG TAB.ER.24H PO SCH (08:28)
[2017-07-03] MEDS ORDERED: HYDR-2758 PO (16:08)
--- NOTE | 2017-07-03 23:55 | DS ---
DATE OF DISCHARGE: 07/03/2017 HOSPITAL COURSE: The patient is an 89-year-old female patient who was admitted on 06/25/2017 with weakness, status post fall with contusion, weakness and debility and need for PT, OT. She did actually very well and apparently physical therapist felt that the patient is safe to be discharged home with home health. PHYSICAL EXAMINATION: GENERAL: When I saw her this afternoon, she looked well and was clearly in no apparent respiratory distress, slightly pale, no jaundice, cyanosis, or thyromegaly. No jugular venous distention. No limb edema. VITAL SIGNS: Her heart rate was 62, blood pressure 164/81, temperature was 97.4, respiratory rate was 16, and oxygen saturation was 96%. HEAD, EYES, EARS, NOSE AND THROAT: Showed normocephalic, atraumatic. NECK: Supple. HEART: Showed normal first and second heart sounds with no gallop, rub or murmur. CHEST: Clear to auscultation. No crepitation or rhonchi. ABDOMEN: Distended, soft, nontender. No guarding or rigidity. No organomegaly. Hernial orifices intact. Bowel sounds normal. NEUROLOGIC: She was awake, alert, responding appropriately. All cranial nerves intact. She moves extremities without difficulty. She ambulates with a walker. SKIN: Examination of the skin showed multiple bruises, especially on her right-sided chest, her knees and forehead that is mostly fading. Her intake was , her output was recorded. LABORATORY DATA: Her lab work showed her white cell count to be 8000, hemoglobin 11.9, hematocrit 35.6, MCV 92, and platelet count 242,000 with normal manual differential. Her chemistry showed a serum sodium of 140, potassium 4.6, chloride 103, bicarbonate 31, anion gap of 6, BUN 30, creatinine 1.3, estimated GFR was 58 mL per minute. Her glucose was 95, calcium was 8.4. Total bilirubin, AST, ALT, alkaline phosphatase were normal. Her total protein was 6.1, albumin 2.5. DISCHARGE MEDICATIONS: She was discharged home with home health to continue on following medications, hydrocodone/APAP 5/325 one tablet every 6 hours as needed, Tylenol 650 mg every 8 hours, albuterol sulfate 1 puff every 6 hours, aspirin 81 mg once a day, Pradaxa 150 mg twice a day, duloxetine for Cymbalta 60 mg daily, Nexium 40 mg once a day, Advair Diskus 250/50 one puff twice a day, furosemide 20 mg once a day, hydrocodone every 6 hours, ibandronate sodium for Boniva 150 mg tablet, isosorbide mononitrate 60 mg once a day, Lidoderm patch topically on for 12 hours and off for 12 hours, magnesium oxide 400 mg tablet once a day, metoprolol succinate 50 mg once a day, Protonix 40 mg once a day, and primidone 25 mg at bedtime. FINAL DISCHARGE DIAGNOSES: 1. Fall with contusion involving the forehead, sternal pain as well as both knee joint pain with no fracture. 2. Hypertension, reasonably controlled. 3. 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 BOB DEWITT MD DR: ERICKSON/dev JOB#: [id number] / [id number]
== END 2017-07-03 17:28 | disposition home health service (06) | DRG 605 ==
LOC: 1 SOUTH 10:35
PROVIDERS: ADMIT Family Medicine; ATTEND Family Medicine
DX: S00.83XA Contusion of other part of head, initial encounter (principal); E78.5 Hyperlipidemia, unspecified; W01.0XXA Fall on same level from slipping, tripping and stumbling without subsequent striking against object, initial encounter; S41.111A Laceration without foreign body of right upper arm, initial encounter; I10 Essential (primary) hypertension; I25.10 Atherosclerotic heart disease of native coronary artery without angina pectoris; M25.561 Pain in right knee; M25.562 Pain in left knee; J42 Unspecified chronic bronchitis; K21.9 Gastro-esophageal reflux disease without esophagitis; K59.09 Other constipation; Z96.652 Presence of left artificial knee joint; R09.02 Hypoxemia; Z79.01 Long term (current) use of anticoagulants; Z85.3 Personal history of malignant neoplasm of breast; Z95.5 Presence of coronary angioplasty implant and graft; Z98.41 Cataract extraction status, right eye; Z98.42 Cataract extraction status, left eye; Y93.89 Activity, other specified; Y99.8 Other external cause status; Z90.49 Acquired absence of other specified parts of digestive tract; Z88.8 Allergy status to other drugs, medicaments and biological substances; Z91.013 Allergy to seafood; Y92.098 Other place in other non-institutional residence as the place of occurrence of the external cause
CPT/HCPCS: 36415; 80053; 83735; 85025; G0238; 97110; 97116; 97530; 97535